=== PATIENT | female | born 1940 | race Caucasian/White ===

== ENCOUNTER 2018-08-10 08:39 | Day surgery (SDC) | payer OTHER ==
[2018-08-09 11:26] LABS: Absolute Lymphocytes (CBC) 1.1 K/uL (0.7-4.9); Absolute Monocytes 0.8 K/uL (0.1-1.3); Absolute Neutrophil 6.5 K/uL (1.8-8.0); Basophils % 1.4 % (0-1.3); Eosinophils % 1.4 % (0-4.4); Lymphocytes % 12.9 % (15.3-44.8); MPV 8.3 fL (7.6-11.3); RBC Red Blood Cell Count 3.76 M/uL (3.86-4.86)
--- NOTE | 2018-08-09 11:35 | RAD REPORT ---
EXAM DESCRIPTION: RAD - Chest Pa And Lat (2 Views) - 08/09/2018 11:28 am CLINICAL HISTORY: left and right heart cath Chest pain. COMPARISON: Chest Pa And Lat (2 Views) dated 10/20/2017; Chest Single View dated 04/05/2016; CHEST SING LE VIEW dated 09/25/2014; CHEST SINGLE VIEW dated 09/24/2014 FINDINGS: Mild interstitial pulmonary edema is present. The heart is normal in size. Sternotomy wire s present. IMPRESSION: Mild CHF.
[2018-08-09 11:40] LABS: Potassium 4.5 mmol/L (3.5-5.1)
[2018-08-10] MEDS ORDERED: NA CHLORIDE 0.9% 0 ML ONE ×2 (09:19→10:49)
[2018-08-10] MEDS ORDERED: NA CHLORIDE 0.9% 500 ML ONE (09:31)
[2018-08-10 10:09] VITALS: TEMP 97.6
[2018-08-10] MEDS ORDERED: LIDOCAINE 1% 20 ML MDV ONE (10:48)
[2018-08-10] MEDS ORDERED: HEPA 1000U/500MLS 2,000 UNIT/1,000 ML BAG IV ONE (10:48)
[2018-08-10] MEDS ORDERED: FENTANYL CITR 100 MCG/2 ML ONE (10:49)
[2018-08-10] MEDS ORDERED: MIDAZOLAM HCL 2 MG/2 ML INJ ONE (10:49)
[2018-08-10] MEDS ORDERED: NA CHLORIDE 0.9% 100 ML IV ONE (10:49)
[2018-08-10] MEDS ORDERED: ATROPINE SULF 1 MG/10 ML SYR IV ONE (10:49)
[2018-08-10] MEDS ORDERED: ACETYLCYST 6,000 MG/30 ML VIAL PO ONE (11:04)
[2018-08-10] MEDS ORDERED: HYDRALAZINE HCL 20 MG/ML VIAL ONE (11:36)
[2018-08-10] MEDS ORDERED: METOPROLOL TARTRATE 5 MG/5 ML INJ IV ONE (11:50)
[2018-08-10] MEDS ORDERED: ACETYLCYST 20% 4 ML VIAL IH ONE (12:06)
[2018-08-10 13:54] VITALS: BP 151/79; O2SAT 96
--- NOTE | 2018-08-11 11:42 | OP ---
Date of Procedure: 08/10/2018 Surgeon: Aryan Feliciano MD Attending Physician: Dr. Canas. Procedure: Right and left heart catheterization with coronary angiography. Procedure Findings: Severe aortic stenosis is suspected. We could not cross the valve and actually measure a gradient using a wire and catheter. She has normal coronary arteries. She has moderate pu lmonary hypertension with PA and RV systolic pressures of 54, pulmonary capillary wedge pressure of 2 3, cardiac output 4.66. Thermal dilution method was used. The findings all indicate severe aortic s tenosis, which is also the conclusion of an echocardiogram. We have been done serially since her aor tic valve surgery done around 2010. Procedure In Detail: The patient was brought to the cardiac dairy laboratory technician in a fasting state, sedated wit h Versed and fentanyl. She had been prepared and draped in the usual sterile fashion. Before coming to the hospital, she had given us informed consent. Lidocaine 1% was used to anesthetize the tissue s around the right femoral artery and the right femoral vein, common femoral vein. Both were entered with needles, cannulated with short J-tip wires. A 4-Danish sheath was placed into the right common femoral artery. A 7-1/2-Danish sheath was placed into the right femoral vein. We used the right fe moral vein to place a [place]-Cedric catheter into the right heart and into the pulmonary artery and into a wedge position. We measured thermodilution cardiac outputs, pressures on a pullback, recorded the values. We then proceeded to the arterial side. We used a JL4 to angiogram left coronary artery, 3D RC to angiogram right coronary artery. We attempted to cross with a straight [place] wire, was unabl e to cross and felt it was more likely to cause difficulty if we attempted a lot of interventions and actually gave us useful information, so we abandoned it after 5 minutes and the conclusion is that s he has severe aortic stenosis, normal coronary arteries, normal ejection fraction, and part of this c onclusion are based on echocardiographic results. She will be referred to Dr. Shelton, who placed he r on initial prosthetic aortic valve in 2010 to see if she is a candidate for a typical aortic valve replacement or a TAVR with an old AVR. SHARRON/ALFONZOL Voice ID: [id number] Report ID: [id number]
== END 2018-08-10 13:56 | disposition home or self-care (01) ==
LOC: CCL 08:39
PROVIDERS: ATTEND Internal Medicine
DX: I35.0 Nonrheumatic aortic (valve) stenosis (principal); I27.20 Pulmonary hypertension, unspecified; I10 Essential (primary) hypertension; Z95.2 Presence of prosthetic heart valve; E11.9 Type 2 diabetes mellitus without complications; J45.909 Unspecified asthma, uncomplicated; Z88.8 Allergy status to other drugs, medicaments and biological substances; Z82.49 Family history of ischemic heart disease and other diseases of the circulatory system
CPT/HCPCS: 85025; 80048; 36415; 85610; 82962 ×2; 85730; 71046; 93456; C1893; C1760; J0360; J2250; J3010; J0583

== ENCOUNTER 2018-11-29 23:38 | Emergency (ER) | payer OTHER ==
--- OUTSIDE RECORDS SUMMARY | 2018-11-29 23:42 | XMS REPORT | Clinical Summary ---
:1940 Author Organization [facility] Address [address] [place] [address] Care Team Providers Name Role Phone Asked, No Pcp Primary Care Provider Unavailable Allergies Active Allergy Reactions Severity Noted Date Comments Losartan Swelling 10/18/2018 Medications Medication Sig Dispensed Refills Start Date End Date Status metFORMIN (GLUCOPHAGE) 1,000 mg 0 09/02/2018 Active tablet lisinopril (PRINIVIL,ZESTRIL) 20 mg 0 10/11/2018 Active tablet metoprolol tartrate (LOPRESSOR) 50 0 09/02/2018 Active mg tablet atorvastatin (LIPITOR) 40 MG tablet 0 09/02/2018 Active Active Problems Problem Noted Date S/P aortic valve replacement with bioprosthetic valve 10/18/2018 Nonrheumatic aortic valve stenosis 10/18/2018 Encounters Date Type Specialty Care Team Description 11/11/2018 Orders Only Cardiovascular Yeni Valero RN S/P aortic valve replacement with bioprosthetic valve (Primary Dx) 10/18/2018 Office Visit Cardiovascular Pop Shelton S/P aortic valve replacement with bioprosthetic valve (Primary Dx); MD Ulysses Nonrheumatic aortic valve stenosis 10/18/2018 Hospital Encounter Pulmonology Pop Shelton Pre-operative respiratory examination; MD Ulysses Nonrheumatic aortic valve stenosis 10/18/2018 Orders Only Cardiovascular Yeni Valero RN Nonrheumatic aortic valve stenosis (Primary Dx) 08/15/2018 Orders Only Cardiovascular Lena Mcclendon RN Nonrheumatic aortic valve stenosis (Primary Dx) 08/15/2018 Orders Only Lena Franco RN Nonrheumatic aortic valve stenosis (Primary Dx); Pre-operative respiratory examination; Pre-operative cardiovascular examination after 11/28/2017 Social History Tobacco Use Types Packs/Day Years Used Date Current Every Day Smoker Cigarettes Smokeless Tobacco: Never Used Sex Assigned at Date Recorded Not on file Job Start Date Occupation Industry Not on file Not on file Not on file Travel History Travel Start Travel End No recent travel history available. Last Filed Vital Signs Vital Sign Reading Time Taken Comments Blood Pressure 160/73 10/18/2018 3:16 PM CDT Pulse 81 10/18/2018 3:16 PM CDT Temperature 36.9 C (98.5 F) 10/18/2018 3:16 PM CDT Respiratory Rate - - Oxygen Saturation - - Inhaled Oxygen Concentration - - Weight 89.8 kg (198 lb) 10/18/2018 3:16 PM CDT Height 170.2 cm (5' 7") 10/18/2018 3:16 PM CDT Body Mass Index 31.01 10/18/2018 3:16 PM CDT Plan of Treatment Date Type Specialty Care Team Description 12/20/2018 Appointment Procedural Cardiology Pop Shelton MD [address] [facility] [address] [place], [place] [id number] 12/21/2018 Hospital Encounter Cardiothoracic Cat, S/P aortic valve Surgery Pop replacement with MD Ulysses bioprosthetic valve [address] [facility] [address] [place], [place] [id number] 12/21/2018 Surgery Cardiothoracic Cat, TRANSCATHETER AORTIC Surgery Pop VALVE REPLACEMENT, MD Ulysses VALVE IN VALVE [address] [facility] [address] [place], [place] [id number] Health Maintenance Due Date Last Done Comments SHINGLES VACCINES (#1) 1988 65+ PNEUMOCOCCAL VACCINE (1 of 2 - PCV13) 09/30/2003 INFLUENZA VACCINE 10/13/2018 Procedures Procedure Name Priority Date/Time Associated Diagnosis Comments ECHOCARDIOGRAM 2D Routine 10/18/2018 1:09 Nonrheumatic aortic Results for this COMPLETE W MMODE PM CDT valve stenosis procedure are in SPECTRAL COLOR DOPPLER the results (62331) section. SPIROMETRY, DIFFUSION, Routine 10/18/2018 12:41 Pre-operative Results for this LUNG VOLUMES PM CDT respiratory procedure are in examination the results Nonrheumatic aortic section. valve stenosis after 11/28/2017 Results Echocardiogram complete w contrast and 3D if needed (10/18/2018 1:09 PM CDT) Specimen Narrative Performed At [facility] Echocardiography Report Pat.Name:JOLLY UPTON.ID:[id number] .Date: 10/18/2018Refer.MD:POP PALACIOS MD Exam Time: 11:25:00 AM Study Type:Routine Echo Height:67inWeight: 198lb BSA: 2.02 m2 DOBAge:1940,78Y Sex: FEMALEBP:160/73 HR:82 bpm Sonogrphr: NELY Farley FASE Pat. Stat.:OutpatientRoom:Ian Avendaño Study Status:Revised Echo Event ID:[id number] Order ID:[id number] Reason for Study:Nonrheumatic aortic valve stenosis History / Clinical:Syncope, Valvular Heart Disease; Aortic Stenosis, COPD, Diabetes, Dizziness, Hyperlipidemia, Hypertension, Shortness of Breath Procedures:2D Echo, Colorflow Doppler Race:White SUMMARY: Small LV with hyperdynamic function. Normal RV size and function. Bioprosthetic aortic valve. No paravalvular aortic regurgitation. Mean gradient across the valve is 33 mm Hg. Normal acceleration time and DVI suggest lack of prosthetic valve obstruction. Aortic valve high velocity and pressure gradient is secondary to high flow state. Severe MAC. Mild to moderate thickening of mitral leaflets. Severe mitral stenosis. Mild mitral regurgitation. Pulmonary hypertension.Estimated PA systolic pressure is at least 64 mmHg, assuming a mean RAP of 5 mmHg. FINDINGS: LV: LV size is normal. Concentric left ventricular remodeling. LVEF is hyperdynamic. Overall wall motion is hyperdynamic. Septalmotion is paradoxical. Estimated EF is >70%. RV: RV size is normal. RV systolic function is normal. LA: LA volume is severely enlarged. RA: RA size is normal. AO: Aortic root diameter is normal. RADHA: No pericardial effusion. AV: Bioprosthetic aortic valve. No paravalvular aortic regurgitation.Mean gradient across the valve is 33 mm Hg. Normalacceleration timesuggests lack of prosthetic valve obstruction.Surgical Prosthetic AV Doppler velocity index is0.5 (normal>0.25). Aortic valve high velocity and pressuregradient is secondary to high flow state. MV: Mild to moderate thickening of mitral leaflets. Severe mitralannular calcification. Mild mitral regurgitation. Severemitral stenosis. Estimated mean mitral valve ybrwnbpr67 mmHg at a heart rate of 77 b/min, with a valve areaof 1.4 cm2. PV: No structural PV abnormalities noted. TV: No structural TV abnormalities noted. Mild tricuspid regurgitation Ovalle: Hepatic vein pressure is normal, RA pressure < 5mmHg. Other:Estimated PA systolic pressure is at least 64 mmHg, assuming amean RAP of 5 mmHg. MEASUREMENTS: 2D Parasternal Long Malin LVIDd4 cmIndex2 cm/m LA Ds4.4 cm LVIDs2.7 cmAo An1.2 cm LV%fs 31.9 % LV Fxmx424.6 g(87-129) IVSd 1.3 cmRWT0.6 LVPWd1.3 cmLVOT 1.9 cm LA Sng Plane LA Area 42.2 cm2(8.8-23.4) LA Vol 189.4 ml Index93.7 ml/m LA LngAx 7.9 cm RA Sng Plane RA Area 13.2 cm2(8.3-19.5) RA Vol31.8 ml Index15.8 ml/m RA LngAx 4.8 cm Ascending Aorta Asce Dim 3.2 cm DOPPLER AV For Flow/CHANTAL AV pkVel 285.5 cm/s (100-170) AV AC/ET 0.3 AV mnVel 190.2 cm/Teresa TVI53.1 cm AV pkPG 32.6 mmHgAVpkAcRt 81292.4 cm/s2 AV Mean G 17.7 mmHgAV OdGz2383.5 cm/s2 AV AC 83 msec (83-118) AV Area1.5 cm2(3-5) AV ET279 msec LVOT For Flow LVOT Area2.8 cm2 LVOT SV 81.6 ml SOPQtgHbm667.6 cm/sHR77.4 bpm LVOTpkPG 5.8 mmHgLVOT CO6.3 l/min LVOTmnPG 4.1 mmHgLVOT CI3.1 l/m/m2 LVOT TVI28.8 cm MV For Flow/Valve Assess MV pkVel 244 cm/sMV Dec T 529 msec MV pkPG 23.8 mmHgMV TVI77.3 cm MV Mean G 14.3 mmHgMV Area P1/2t1.4 cm2(4-6) TV Pressure Gradient TV PkVel 383.2 cm/sTV PG 58.7 mmHg Signed 10/19/2018 11:00:46 AM Laura Mclean MD Revised Procedure Note Interface, Radiology Results In - 10/19/2018 11:01 AM CDT [facility] Echocardiography Report Pat.Name: JOLLY UPTON.ID: [id number] .Date: 10/18/2018 Refer.MD: POP PALACIOS MD Exam Time: 11:25:00 AM Study Type:Routine Echo Height: 67in Weight: 198lb BSA: 2.02 m2 Age: 7 1940,78Y Sex: FEMALE BP: 160/73 HR: 82 bpm Sonogrphr: NELY Farley FASE Pat. Stat.:Outpatient Room: [place] [address] Study Status:Revised Echo Event ID:[id number] Order ID: [id number] Reason for Study:Nonrheumatic aortic valve stenosis History / Clinical:Syncope, Valvular Heart Disease; Aortic Stenosis, COPD, Diabetes, Dizziness, Hyperlipidemia, Hypertension, Shortness of Breath Procedures:2D Echo, Colorflow Doppler Race: White SUMMARY: Small LV with hyperdynamic function. Normal RV size and function. Bioprosthetic aortic valve. No paravalvular aortic regurgitation. Mean gradient across the valve is 33 mm Hg. Normal acceleration time and DVI suggest lack of prosthetic valve obstruction. Aortic valve high velocity and pressure gradient is secondary to high flow state. Severe MAC. Mild to moderate thickening of mitral leaflets. Severe mitral stenosis. Mild mitral regurgitation. Pulmonary hypertension. Estimated PA systolic pressure is at least 64 mmHg, assuming a mean RAP of 5 mmHg. FINDINGS: LV: LV size is normal. Concentric left ventricular remodeling. LV EF is hyperdynamic. Overall wall motion is hyperdynamic. Septal motion is paradoxical. Estimated EF is >70%. RV: RV size is normal. RV systolic function is normal. LA: LA volume is severely enlarged. RA: RA size is normal. AO: Aortic root diameter is normal. RADHA: No pericardial effusion. AV: Bioprosthetic aortic valve. No paravalvular aortic regurgitation. Mean gradient across the valve is 33 mm Hg. Normal acceleration time suggests lack of prosthetic valve obstruction. Surgical Prosthetic AV Doppler velocity index is 0.5 (normal>0.25). Aortic valve high velocity and pressure gradient is secondary to high flow state. MV: Mild to moderate thickening of mitral leaflets. Severe mitral annular calcification. Mild mitral regurgitation. Severe mitral stenosis. Estimated mean mitral valve gradient 14 mmHg at a heart rate of 77 b/min, with a valve area of 1.4 cm2. PV: No structural PV abnormalities noted. TV: No structural TV abnormalities noted. Mild tricuspid regurgitation Ovalle: Hepatic vein pressure is normal, RA pressure < 5mmHg. Other: Estimated PA systolic pressure is at least 64 mmHg, assuming a mean RAP of 5 mmHg. MEASUREMENTS: 2D Parasternal Long Malin LVIDd 4 cm Index 2 cm/m LA Ds 4.4 cm LVIDs 2.7 cm Ao An 1.2 cm LV%fs 31.9 % LV Mass 179.6 g (87-129) IVSd 1.3 cm RWT 0.6 LVPWd 1.3 cm LVOT 1.9 cm LA Sng Plane LA Area 42.2 cm2 (8.8-23.4) LA Vol 189.4 ml Index 93.7 ml/m LA LngAx 7.9 cm RA Sng Plane RA Area 13.2 cm2 (8.3-19.5) RA Vol 31.8 ml Index 15.8 ml/m RA LngAx 4.8 cm Ascending Aorta Asce Dim 3.2 cm DOPPLER AV For Flow/CHANTAL AV pkVel 285.5 cm/s (100-170) AV AC/ET 0.3 AV mnVel 190.2 cm/s AV TVI 53.1 cm AV pkPG 32.6 mmHg AVpkAcRt 56537.4 cm/s2 AV Mean G 17.7 mmHg AV DeRt 1022.5 cm/s2 AV AC 83 msec (83-118) AV Area 1.5 cm2 (3-5) AV ET 279 msec LVOT For Flow LVOT Area 2.8 cm2 LVOT SV 81.6 ml LVOTpkVel 120.6 cm/s HR 77.4 bpm LVOTpkPG 5.8 mmHg LVOT CO 6.3 l/min LVOTmnPG 4.1 mmHg LVOT CI 3.1 l/m/m2 LVOT TVI 28.8 cm MV For Flow/Valve Assess MV pkVel 244 cm/s MV Dec T 529 msec MV pkPG 23.8 mmHg MV TVI 77.3 cm MV Mean G 14.3 mmHg MV Area P1/2t 1.4 cm2 (4-6) TV Pressure Gradient TV PkVel 383.2 cm/s TV PG 58.7 mmHg Signed 10/19/2018 11:00:46 AM Laura Mclean MD Revised Performing Organization Address City/State/Zipcode Phone Number [facility] [address] [place] [address] Spirometry, diffusion, lung volumes (10/18/2018 12:41 PM CDT) [facility] FEV1 Pre 1.75 1.59 - 2.87 L [facility] FEV1/FVC % Pre 82.42 64.02 - 83.60 % [facility] FVC Pre 2.13 2.23 - 3.74 L [facility] PEF Pre 5.29 3.39 - 7.14 L/s [facility] FEF 25-75% Pre 2.11 0.23 - 2.94 L/s [facility] DLCO Pre 14.19 14.11 - 27.11 [facility] ml/(min*mmHg) DL/VA Pre 3.95 2.68 - 5.31 [facility] ml/(min*mmHg*L) VA SB Pre 3.60 4.45 - 6.66 L [facility] DLCOc Pre 14.19 14.11 - 27.11 [facility] ml/(min*mmHg) KCOc SB Pre 3.95 2.68 - 5.31 [facility] ml/(min*mmHg*L) Hb Pre 13.40 g(Hb)/dL [facility] R0.5IN Pre 2.87 3.06 - 3.06 [facility] cmH2O*s/L FRCpl Pre 2.10 2.07 - 3.71 L [facility] RV Pre 1.26 1.78 - 2.94 L [facility] TLC Pre 3.79 4.45 - 6.43 L [facility] RV % TLC Pre 33.25 36.57 - 55.75 % [facility] VC Pre 2.53 2.23 - 3.74 L [facility] ERV Pre 0.84 0.53 - 0.53 L [facility] IC Pre 1.69 2.20 - 2.20 L [facility] sR0.5IN Pre 7.72 cmH2O*s [facility] Raw Pre 4.18 3.06 - 3.06 [facility] cmH2O*s/L sGaw Predicted 0.09 0.10 - 0.10 [facility] 1/(cmH2O*s) FEV1 Predicted 2.23 [facility] FEV1 LLN 1.59 [facility] FEV1 % Pre of Predicted 78.5 % [facility] FVC Predicted 2.99 [facility] FVC LLN 2.23 [facility] FVC % Pre of Predicted 71.2 % [facility] FEV1/FVC % Predicted 74 [facility] FEV1/FVC % LLN 64 [facility] FEV1/FVC % Pre of 111.7 % [facility] Predicted FEF 25-75% Predicted 1.59 [facility] FEF 25-75% LLN 0.23 [facility] FEF 25-75% % Pre of 133.0 % [facility] Predicted PEF Predicted 5.26 [facility] PEF LLN 3.39 [facility] PEF % Pre of Predicted 100.5 % [facility] VC Predicted 2.99 [facility] VC LLN 2.23 [facility] VC % Pre of Predicted 84.6 % [facility] ERV Predicted 0.53 [facility] ERV LLN 0.53 [facility] ERV % Pre of Predicted 158.3 % [facility] FRCpl % Predicted 2.89 [facility] FRCpl % LLN 2.07 [facility] FRCpl % Pre of Predicted 72.6 % [facility] IC Predicted 2.20 [facility] IC LLN 2.20 [facility] IC % Pre of Predicted 76.6 % [facility] RV Predicted 2.36 [facility] RV LLN 1.78 [facility] RV % Pre of Predicted 53.3 % [facility] RV % TLC Predicted 46 [facility] RV % TLC LLN 37 [facility] RV % TLC % Pre of 72.0 % [facility] Predicted TLC Predicted 5.44 [facility] TLC LLN 4.45 [facility] TLC % Pre of Predicted 69.6 % [facility] Raw Predicted 3.06 [facility] Raw LLN 3.06 [facility] Raw % Pre of Predicted 136.6 % [facility] R0.5IN Predicted 3.06 [facility] R0.5IN LLN 3.06 [facility] R0.5IN % Pre of 93.8 % [facility] Predicted sGaw Predicted 0.10 [facility] sGaw LLN 0.10 [facility] sGaw % Pre of Predicted 87.2 % [facility] DLCO Predicted 20.61 [facility] DLCO LLN 14.11 [facility] DLCO % Pre of Predicted 68.8 % [facility] DLCOc Predicted 20.61 [facility] DLCOc LLN 14.11 [facility] DLCOc % Pre of Predicted 68.8 % [facility] DL/VA Predicted 3.99 [facility] DL/VA LLN 2.68 [facility] DL/VA % Pre of Predicted 98.8 % [facility] KCOc SB Predicted 3.99 [facility] KCOc SB LLN 2.68 [facility] KCOc SB % Pre of 98.8 % [facility] Predicted VA SB Predicted 5.55 [facility] VA SB LLN 4.45 [facility] VA SB % Pre of Predicted 64.7 % [facility] Specimen Narrative Performed At Performing Organization Address City/State/Zipcode Phone Number [facility] [address] [place] [address] after 11/28/2017 Insurance Payer Benefit Plan / Subscriber ID Effective Dates Phone Address Type Group MEDICARE MEDICARE PART A xxxxxxxxxxx 2003-Present [place], [place] Medicare AND B (Home) [place] [address] Advance Directives For more information, please contact: [phone] Type Date Recorded 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
[2018-11-30 00:20] LABS: Absolute Lymphocytes (CBC) 1.1 K/uL (0.7-4.9); Basophils % 1.4 % (0-1.3); Hematocrit 34.6 % (36.0-45.0); Lymphocytes % 20.7 % (15.3-44.8)
[2018-11-30 00:23] LABS: Protime INR 1.01
[2018-11-30 00:40] LABS: ALT/SGPT 13 U/L (12-78); AST/SGOT 20 U/L (15-37); Albumin 3.8 g/dL (3.4-5.0); Alkaline Phosphatase 117 U/L (45-117); BUN Blood Urea Nitrogen 34 mg/dL (7-18); Bicarbonate 24 mmol/L (21-32); Bilirubin Direct 0.1 mg/dL (0-0.2); Bilirubin Total 0.4 mg/dL (0.2-1.0); Glucose Level 143 mg/dL (74-106); Magnesium 2.2 mg/dL (1.8-2.4); NT PRO-BNP 1064 pg/mL (<450); Potassium 4.3 mmol/L (3.5-5.1); Protein, Total 7.3 g/dL (6.4-8.2); Sodium Level 141 mmol/L (136-145); Troponin (Emerg Dept Use Only) < 0.02 ng/mL (0.0-0.045)
--- NOTE | 2018-11-30 03:48 | ER ---
Nurse's Notes [facility] Name: Jolly Thayer Age: 78 yrs Sex: Female : 1940 Arrival Date: 11/29/2018 Time: 23:47 Bed 19 Private MD: Diagnosis: Palpitations Presentation: 11/29 23:49 Presenting complaint: EMS states: they were toned out for report of pt having chest bb pain and felt a "flutter" in her chest which she has not experienced in the past. Transition of care: patient was not received from another setting of care. Onset of symptoms was November 29, 2018. Risk Assessment: Do you want to hurt yourself or someone else? Patient reports no desire to harm self or others. Initial Sepsis Screen: Does the patient meet any 2 criteria? No. Patient's initial sepsis screen is negative. Does the patient have a suspected source of infection? No. Patient's initial sepsis screen is negative. Care prior to arrival: Medication(s) given: ASA, 81 mg, x 4, Nitroglycerin, 0.4 mg SL x 1, IV initiated. 20 GA, in the left antecubital area. 23:49 Method Of Arrival: Ambulatory bb 23:49 Acuity: TROY 2 bb Triage Assessment: 23:59 General: Appears uncomfortable, Behavior is calm, cooperative. Pain: Complains of pain lc1 in left chest Pain does not radiate. Pain currently is 4 out of 10 on a pain scale. Quality of pain is described as aching, Pain began 1 hour ago. Is intermittent. EENT: No signs and/or symptoms were reported regarding the EENT system. Neuro: No deficits noted. Cardiovascular: Rhythm is sinus tachycardia Chest pain is located in left chest wall began 1 hour prior to arrival episodes are intermittent. Respiratory: No deficits noted. GI: No signs and/or symptoms were reported involving the gastrointestinal system. : No signs and/or symptoms were reported regarding the genitourinary system. Derm: No signs and/or symptoms reported regarding the dermatologic system. Musculoskeletal: No signs and/or symptoms reported regarding the musculoskeletal system. Historical: - Allergies: 23:51 valsartan; bb - Home Meds: 23:51 Unable to obtain [Active]; bb - PMHx: 23:51 Asthma; COPD; Hypertension; bb - PSHx: 23:51 heart valve surgery; Hysterectomy; bb - Immunization history:: Adult Immunizations up to date. - Social history:: Smoking status: Patient/guardian denies using tobacco. - Ebola Screening: : No symptoms or risks identified at this time. Screenin:54 Abuse screen: Denies threats or abuse. Nutritional screening: No deficits noted. lc1 Tuberculosis screening: No symptoms or risk factors identified. Fall Risk None identified. Assessment: 23:54 General: Appears uncomfortable, obese, Behavior is calm, cooperative. Pain: Complains lc1 of pain in left chest Pain does not radiate. Pain currently is 4 out of 10 on a pain scale. Quality of pain is described as aching, Pain began 1 hour ago. Is intermittent. Neuro: No deficits noted. Cardiovascular: Reports chest pain, palpitations, since about an hour ago Denies lightheadedness, nausea, syncope, vomiting, Capillary refill < 3 seconds is brisk Clubbing of nail beds is absent JVD is absent Patient's skin is warm and dry. Rhythm is sinus tachycardia Chest pain is described as mild, quality is aching Parent/caregiver reports patient has had since history of valve replacement. Respiratory: Airway is patent Respiratory effort is even, unlabored, Respiratory pattern is regular, symmetrical. GI: No signs and/or symptoms were reported involving the gastrointestinal system. : No signs and/or symptoms were reported regarding the genitourinary system. EENT: No signs and/or symptoms were reported regarding the EENT system. Derm: No deficits noted. Musculoskeletal: No signs and/or symptoms reported regarding the musculoskeletal system. 11/30 00:14 Reassessment: patient stated she feels like the air is thick and its hard to breath. 02 lc1 placed per NC at 2 liters, sat 100%, will continue to monitor . 01:11 Reassessment: No changes from previously documented assessment. Patient and/or family lc1 updated on plan of care and expected duration. Pain level reassessed. Patient is alert, oriented x 3, equal unlabored respirations, skin warm/dry/pink. Patient states feeling better. 01:32 Pain: Complains of pain in chest Pain currently is 4 out of 10 on a pain scale. Quality jd3 of pain is described as aching. Neuro: Level of Consciousness is awake, alert, obeys commands, Oriented to person, place, time, situation. Cardiovascular: Capillary refill < 3 seconds Patient's skin is warm and dry. Rhythm is sinus rhythm. Respiratory: Airway is patent Respiratory effort is even, unlabored, Respiratory pattern is regular, symmetrical, Denies cough, shortness of breath. GI: No signs and/or symptoms were reported involving the gastrointestinal system. : No signs and/or symptoms were reported regarding the genitourinary system. EENT: No signs and/or symptoms were reported regarding the EENT system. Derm: Skin is intact, Skin is dry, Skin is normal, Skin temperature is warm. Musculoskeletal: Circulation, motion, and sensation intact. Range of motion: intact in all extremities. 02:44 Reassessment: Patient appears in no apparent distress at this time. Patient and/or jd3 family updated on plan of care and expected duration. Pain level reassessed. Patient is alert, oriented x 3, equal unlabored respirations, skin warm/dry/pink. awaiting disposition. 04:14 Reassessment: Patient appears in no apparent distress at this time. Patient and/or jd3 family updated on plan of care and expected duration. Pain level reassessed. Patient is alert, oriented x 3, equal unlabored respirations, skin warm/dry/pink. reported understanding of discharge instructions. assisted pt to front of ER with wheelchair with family. Patient states feeling better. Vital Signs: 11/29 23:51 BP 124 / 92; Pulse 119; Resp 24 S; Temp 98.2(O); Pulse Ox 96% on R/A; Weight 86.18 kg bb (R); Height 5 ft. 7 in. (170.18 cm); Pain 06/22; 11/30 00:15 BP 128 / 72; Pulse 97; Resp 20; Pulse Ox 100% on 2 lpm NC; lc1 01:00 BP 122 / 83; Pulse 91; Resp 22; Pulse Ox 97% on 2 lpm NC; lc1 01:34 BP 158 / 99; Pulse 87; Resp 21 S; Pulse Ox 98% on R/A; Pain 4/10; jd3 02:44 BP 138 / 89; Pulse 83; Resp 23 S; Pulse Ox 99% on R/A; jd3 04:15 BP 129 / 85; Pulse 82; Resp 21 S; Pulse Ox 97% on R/A; Pain 0/10; jd3 11/29 23:51 Body Mass Index 29.76 (86.18 kg, 170.18 cm) bb ED Course: 11/29 23:47 Patient arrived in ED. ds1 23:50 Triage completed. bb 23:50 Tomer Mccrary MD is Attending Physician. 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 EKG completed in triage. Results shown to MD. Family accompanied patient. 23:53 Kiera Astorga is Primary Nurse. lc1 23:54 Awaiting ED provider evaluation. lc1 23:54 Patient has correct armband on for positive identification. Placed in gown. Bed in low lc1 position. Side rails up X 1. press catcher on. Pulse ox on. NIBP on. Door closed. Noise minimized. Warm blanket given. 11/30 00:14 Maintain EMS IV. Dressing intact. Good blood return noted. Site clean \\T\\ dry. Gauge \\T\\ lc 1 site: 20G LAC . 00:17 X-ray completed. Portable x-ray completed in exam room. Patient tolerated procedure kw well. 00:23 XRAY Chest (1 view) In Process Unspecified. EDMS 00:26 Oxygen administration via nasal cannula \\T\\ 2L/min Response to oxygen therapy: symptoms lc1 improved. 00:28 Awaiting lab results, Awaiting radiology results. lc1 01:31 Primary Nurse role handed off by Kiera Astorga jd3 01:31 Fransisco Hoang RN is Primary Nurse. jd3 02:16 Troponin (emerg Dept Use Only) Sent. jd3 04:13 No provider procedures requiring assistance completed. IV discontinued, intact, jd3 bleeding controlled, No redness/swelling at site. Pressure dressing applied. Administered Medications: No medications were administered Outcome: 03:47 Discharge ordered by . gs 04:14 Discharged to home via wheelchair, with family. jd3 04:14 Condition: stable 04:14 Discharge instructions given to patient, family, Instructed on discharge instructions, follow up and referral plans. Demonstrated understanding of instructions, follow-up care. 04:16 Patient left the ED. jd3 Signatures: Dispatcher [employer] EDAZ Amada Riojas ds1 Wendy Estrada, RENA RN Kiera Sumner lc1 Morenita Coronel Gregory, MD MD gs Fransisco Hoang RN RN jd3
--- NOTE | 2018-11-30 03:48 | EDPHYS ---
Physician Documentation [facility] Name: Jolly Thayer Age: 78 yrs Sex: Female : 1940 Arrival Date: 11/29/2018 Time: 23:47 Bed 19 Private MD: ED Physician Tomer Mccrary HPI: 11/30 03:10 This 78 yrs old Female presents to ER via Ambulatory with complaints of gs palpitations. 03:10 The patient presents with a history of heart racing. Context: The symptoms occur at gs rest. Onset: The symptoms/episode began/occurred acutely, just prior to arrival. Duration: The patient or guardian reports a single episode, that is now resolved. Modifying factors: The symptoms are aggravated by nothing. The symptoms are alleviated by nothing. Associated signs and symptoms: Pertinent positives: chest pain, SOB. Severity of symptoms: At their worst the symptoms were moderate in the emergency department the symptoms have resolved. The patient has experienced similar episodes in the past, a few times. Historical: - Allergies: 11/29 23:51 valsartan; bb - Home Meds: 23:51 Unable to obtain [Active]; bb - PMHx: 23:51 Asthma; COPD; Hypertension; bb - PSHx: 23:51 heart valve surgery; Hysterectomy; bb - Immunization history:: Adult Immunizations up to date. - Social history:: Smoking status: Patient/guardian denies using tobacco. - Ebola Screening: : No symptoms or risks identified at this time. ROS: 11/30 03:10 All other systems are negative. gs Exam: 03:10 Head/Face: Normocephalic, atraumatic. Eyes: Pupils equal round and reactive to light, gs extra-ocular motions intact. Lids and lashes normal. Conjunctiva and sclera are non-icteric and not injected. Cornea within normal limits. Periorbital areas with no swelling, redness, or edema. ENT: Nares patent. No nasal discharge, no septal abnormalities noted. Tympanic membranes are normal and external auditory canals are clear. Oropharynx with no redness, swelling, or masses, exudates, or evidence of obstruction, uvula midline. Mucous membranes moist. Neck: Trachea midline, no thyromegaly or masses palpated, and no cervical lymphadenopathy. Supple, full range of motion without nuchal rigidity, or vertebral point tenderness. No Meningismus. Chest/axilla: Normal chest wall appearance and motion. Nontender with no deformity. No lesions are appreciated. Cardiovascular: Regular rate and rhythm with a normal S1 and S2. No gallops, murmurs, or rubs. Normal PMI, no JVD. No pulse deficits. Respiratory: Lungs have equal breath sounds bilaterally, clear to auscultation and percussion. No rales, rhonchi or wheezes noted. No increased work of breathing, no retractions or nasal flaring. Abdomen/GI: Soft, non-tender, with normal bowel sounds. No distension or tympany. No guarding or rebound. No evidence of tenderness throughout. Back: No spinal tenderness. No costovertebral tenderness. Full range of motion. Skin: Warm, dry with normal turgor. Normal color with no rashes, no lesions, and no evidence of cellulitis. MS/ Extremity: Pulses equal, no cyanosis. Neurovascular intact. Full, normal range of motion. Neuro: Awake and alert, GCS 15, oriented to person, place, time, and situation. Cranial nerves II-XII grossly intact. Motor strength 5/5 in all extremities. Sensory grossly intact. Cerebellar exam normal. Normal gait. 03:10 Constitutional: The patient appears alert, awake. 03:10 Cardiovascular: Heart sounds: murmur, systolic, grade 2 over 6. 03:47 ECG was reviewed by the Attending Physician. Vital Signs: 11/29 23:51 BP 124 / 92; Pulse 119; Resp 24 S; Temp 98.2(O); Pulse Ox 96% on R/A; Weight 86.18 kg bb (R); Height 5 ft. 7 in. (170.18 cm); Pain 06/22; 11/30 00:15 BP 128 / 72; Pulse 97; Resp 20; Pulse Ox 100% on 2 lpm NC; lc1 01:00 BP 122 / 83; Pulse 91; Resp 22; Pulse Ox 97% on 2 lpm NC; lc1 01:34 BP 158 / 99; Pulse 87; Resp 21 S; Pulse Ox 98% on R/A; Pain 06/22; jd3 02:44 BP 138 / 89; Pulse 83; Resp 23 S; Pulse Ox 99% on R/A; jd3 04:15 BP 129 / 85; Pulse 82; Resp 21 S; Pulse Ox 97% on R/A; Pain 0/10; jd3 11/29 23:51 Body Mass Index 29.76 (86.18 kg, 170.18 cm) bb MDM: 11/29 23:56 Patient medically screened. 11/30 03:10 Differential diagnosis: arrythmia, mi,chf. Data reviewed: vital signs, nurses notes, lab test result(s), EKG, radiologic studies. Response to treatment: the patient's symptoms have markedly improved after treatment, the patient's symptoms have resolved after treatment, the patient's condition has returned to base line. 11/29 23:59 Order name: Basic Metabolic Panel; Complete Time: 01: 11/29 23:59 Order name: CBC with Diff; Complete Time: : 11/29 23:59 Order name: LFT's; Complete Time: 01: 11/29 23:59 Order name: Magnesium; Complete Time: 01: 11/29 23:59 Order name: NT PRO-BNP; Complete Time: 01: 11/29 23:59 Order name: PT-INR; Complete Time: 01: 11/29 23:59 Order name: Troponin (emerg Dept Use Only) 11/29 23:59 Order name: XRAY Chest (1 view) 11/29 23:59 Order name: EKG; Complete Time: 00:02 11/29 23:59 Order name: Cardiac monitoring; Complete Time: 00:05 11/29 23:59 Order name: EKG - Nurse/Tech; Complete Time: 00:04 11/29 23:59 Order name: IV Saline Lock; Complete Time: 00:11 11/29 23:59 Order name: Labs collected and sent; Complete Time: 00:12 11/30 02:04 Order name: Troponin (emerg Dept Use Only); Complete Time: 03:43 11/29 23:59 Order name: O2 Per Protocol; Complete Time: 00:05 11/29 23:59 Order name: O2 Sat Monitoring; Complete Time: 00:05 EC:47 Rate is 126 beats/min. Rhythm is regular, Sinus tachycardia. [place] interval is normal. QRS gs interval is normal. Clinical impression: NSR w/ Non-specific ST/T Changes. Interpreted by me. Administered Medications: No medications were administered Disposition: 11/30/18 03:47 Discharged to Home. Impression: Palpitations. - Condition is Stable. - Discharge Instructions: Palpitations. - Medication Reconciliation Form, Thank You Letter, Antibiotic Education, Prescription Opioid Use form. - Follow up: Private Physician; When: 2 - 3 days; Reason: Re-evaluation by your physician. Signatures: Dispatcher [employer] Wendy Trimble RN RN Tomer Ochoa MD MD gs Davies, Jonathon, RN RN jd3 Corrections: (The following items were deleted from the chart) 04:16 03:47 11/30/2018 03:47 Discharged to Home. Impression: Palpitations. Condition is jd3 Stable. Forms are Medication Reconciliation Form, Thank You Letter, Antibiotic Education, Prescription Opioid Use. Follow up: Private Physician; When: 2 - 3 days; Reason: Re-evaluation by your physician. segun
[2018-11-30 04:23] VITALS: TEMP 98.2
[2018-11-30 04:31] VITALS: BP 129/85; O2SAT 97
--- NOTE | 2018-11-30 07:26 | EKG ---
Test Date: 2018-11-29 Test Time: 23:44:56 Recharger: VINNY MEASUREMENT RESULTS: Intervals: Rate: 116 IL: 164 QRSD: 92 QT: 330 QTc: 458 [place]: P: 56 IL: 164 QRS: -11 T: 69 INTERPRETIVE STATEMENTS: Sinus tachycardia Otherwise normal ECG Compared to ECG 04/05/2016 19:04:55 Sinus rhythm no longer present Electronically Signed On 11-30-18 07:25:08 CDT by Amaury Rubalcava
--- NOTE | 2018-11-30 07:50 | RAD REPORT ---
EXAM DESCRIPTION: Jeane Single View11/30/2018 12:18 am CLINICAL HISTORY: Chest pain COMPARISON: July 2018 FINDINGS: The lungs appear clear of acute infiltrate. The heart is mildly enlarged. Postsurgical changes involve the chest. IMPRESSION: No acute abnormalities displayed
== END 2018-11-30 04:16 | disposition home or self-care (01) ==
LOC: ER 23:38
DX: R00.2 Palpitations (principal); I10 Essential (primary) hypertension; Z88.8 Allergy status to other drugs, medicaments and biological substances; Z95.818 Presence of other cardiac implants and grafts
CPT/HCPCS: 36415; 71045; 80048; 80076; 83735; 83880; 84484; 85025; 85610; 93005; 99285

== ENCOUNTER 2021-10-16 00:55 | Observation (INO) | payer OTHER ==
[2021-10-16] MEDS ORDERED: NA CHLORIDE 0.9% 500 ML ONE (01:22)
[2021-10-16 01:44] LABS: Absolute Lymphocytes (CBC) 0.6 K/uL (0.7-4.9); Hematocrit 41.7 % (36.0-45.0); Lymphocytes % 10.4 % (15.3-44.8); MCV 93.9 fL (80-100); MPV 8.3 fL (7.6-11.3); RBC Red Blood Cell Count 4.44 M/uL (3.86-4.86)
[2021-10-16 02:11] LABS: Potassium 3.8 mmol/L (3.5-5.1)
[2021-10-16 02:12] LABS: Troponin High Sensitivity 84.9 pg/mL (<58.9)
--- NOTE | 2021-10-16 02:49 | EDPHYS ---
Physician Documentation [facility] Name: Jolly Thayer Age: 81 yrs Sex: Female : 1940 Arrival Date: 10/16/2021 Time: 01:00 Bed 5 Private MD: ED Physician Adam Eldridge HPI: 10/16 01:06 This 81 yrs old Female presents to ER via EMS with complaints of generalized weakness. rn 01:06 EMS reports multiple 911 calls from family, ranging from weakness to sob, but patient rn ultimately refused transfer. Called back out again for weakness and patient agreed to transfer. Reports having trouble getting out of bed and to bathroom, not eating/drinking normal amounts. Denies focal weakness/numbness. No fall. No chest pain. Reports mild sob, and is on home O2. No fever. No abd pain or vomiting/diarrhea. . Onset: The symptoms/episode began/occurred at an unknown time. Severity of symptoms: At their worst the symptoms were moderate in the emergency department the symptoms are unchanged. It is unknown whether or not the patient has had similar symptoms in the past. The patient has not recently seen a physician. Historical: - Allergies: 01:06 valsartan; vc1 - Home Meds: 01:06 None [Active]; vc1 - PMHx: 01:06 Asthma; COPD; Hypertension; vc1 - PSHx: 01:06 None; vc1 - Immunization history:: Adult Immunizations up to date. - Social history:: Smoking status: Patient denies any tobacco usage or history of. - Family history:: not pertinent. - Hospitalizations: : No recent hospitalization is reported. ROS: 01:06 Constitutional: Negative for fever, chills, and weight loss, Eyes: Negative for injury, rn pain, redness, and discharge, Neck: Negative for injury, pain, and swelling, Cardiovascular: Negative for chest pain, palpitations, and edema, Respiratory: Negative for shortness of breath, cough, wheezing, and pleuritic chest pain, Abdomen/GI: Negative for abdominal pain, nausea, vomiting, diarrhea, and constipation, Back: Negative for injury and pain, : Negative for injury, bleeding, discharge, and swelling, MS/Extremity: Negative for injury and deformity, Skin: Negative for injury, rash, and discoloration, Neuro: Negative for headache, numbness, tingling, and seizure. Exam: 01:06 ECG was reviewed by the Attending Physician. rn 01:06 Constitutional: This is a well developed, well nourished patient who is awake, alert, rn and in no acute distress. Head/Face: Normocephalic, atraumatic. Eyes: Periorbital areas with no swelling, redness, or edema. ENT: dry MM Cardiovascular: Tachycardic, regular Respiratory: No increased work of breathing, no retractions or nasal flaring. Abdomen/GI: soft, non-tender Skin: Warm, dry MS/ Extremity: Pulses equal, no cyanosis. Neurovascular intact. Full, normal range of motion. Equal circumference. Neuro: Awake and alert, GCS 15, oriented to person, place, not time. Cranial nerves II-XII grossly intact. Motor strength 4/5 in all extremities. Sensory grossly intact. Vital Signs: 01:02 BP 105 / 71; Pulse 107; Resp 16; Temp 98.1(O); Pulse Ox 96% on R/A; Weight 48.53 kg; vc1 Height 5 ft. 7 in. (170.18 cm); Pain 0/10; 01:08 Pulse Ox 98% on 2 lpm NC; vc1 02:28 BP 115 / 65; Pulse 89; Resp 16; Pulse Ox 100% on 2 lpm NC; vc1 04:29 BP 108 / 68 RA (man/); tw5 04:29 BP 102 / 64 LA (man/); tw5 11:16 Weight 81.65 kg; ph 11:16 Body Mass Index 28.19 (81.65 kg, 170.18 cm) ph MDM: 01:01 Patient medically screened. rn 02:46 Differential Diagnosis COVID, dehydration, UTI, pneumonia. Data reviewed: vital signs, rn nurses notes, lab test result(s), radiologic studies, plain films, and as a result, I will admit patient. Counseling: I had a detailed discussion with the patient and/or guardian regarding: the historical points, exam findings, and any diagnostic results supporting the discharge/admit diagnosis, lab results, radiology results, the need for further work-up and treatment in the hospital. Response to treatment: the patient's symptoms have mildly improved after treatment, and as a result, I will admit patient. Admission orders: after a detailed discussion of the patient's condition and case, the admit orders are written by me. 10/16 01:02 Order name: CBC with Diff; Complete Time: 03:12 rn 08/ 01:02 Order name: Basic Metabolic Panel; Complete Time: 02:40 rn /04 01:02 Order name: Urine Microscopic Only rn 10/16 01:02 Order name: BNP; Complete Time: 02:40 rn 10/16 01:02 Order name: Troponin High Sensitivity; Complete Time: 02:40 rn 10/16 01:02 Order name: Blood Culture Adult (2) rn 10/16 01:02 Order name: XRAY Chest (1 view) rn 10/16 01:02 Order name: SARS-COV-2 RT PCR (Document "Date of Onset" if Symptomatic); Complete Time: rn 02:40 10/16 01:48 Order name: Manual Differential; Complete Time: 03:12 EDMS 10/16 03:12 Order name: DD; Complete Time: 05:15 la1 10/16 05:16 Order name: Chest For PE Angio CT la1 04 08:38 Order name: Troponin High Sensitivity EDMS 04 11:46 Order name: CT EDMS 10/16 01:02 Order name: IV Start; Complete Time: 02:15 rn 10/16 01:02 Order name: EKG; Complete Time: 01:03 rn 10/16 01:02 Order name: EKG - Nurse/Tech; Complete Time: 01:10 rn 10/16 01:02 Order name: Cardiac monitoring; Complete Time: 02:15 rn 10/16 01:02 Order name: O2 Sat Monitoring; Complete Time: 02:15 rn EC:06 Rate is 104 beats/min. Rhythm is regular. QRS [place] is Normal. [place] interval is normal. rn QRS interval is normal. QT interval is normal. No Q waves. T waves are Normal. No ST changes noted. Clinical impression: Sinus tachycardia. Interpreted by me. Reviewed by me. Administered Medications: 02:10 Drug: NS 0.9% 500 ml Route: IV; Rate: bolus; Site: right antecubital; vc1 02:40 Follow up: IV Status: Completed infusion; IV Intake: 500ml vc1 03:01 Drug: Aspirin Chewable Tablet 324 mg Route: PO; vc1 03:30 Follow up: Response: No adverse reaction vc1 04:20 Drug: NS 0.9% 1000 ml Route: IV; Rate: 1 bolus; Site: right antecubital; vc1 05:26 Follow up: IV Status: Infusion continued upon admission vc1 08:40 Drug: Lovenox (enoxaparin) 1 mg/kg Route: Sub-Q; Site: right lower abdomen; ph 09:00 Follow up: Response: No adverse reaction ph Disposition Summary: 10/16/21 02:48 Hospitalization Ordered Hospitalization Status: Observation rn Provider: Manny Sanchez rn Condition: Stable rn Problem: new rn Symptoms: have improved rn Bed/Room Type: Standard rn Location: Telemetry/MedSurg (observation)(10/16/21 11:03) eb Room Assignment: [facility](10/16/21 11:03) Diagnosis - SARS-associated coronavirus as the cause of diseases classified elsewhere rn - Muscle weakness (generalized) rn - Pulmonary embolism without acute cor pulmonale rn Forms: - Medication Reconciliation Form rn - SBAR form rn Signatures: Dispatcher [employer] EDAdam Liz MD MD rn Attema, Lee, FIELD AGRONOMIST-C FIELD AGRONOMIST-Cla1 Natasha Reddy RN RN Lolis Lr RN RN Coco Davis Vanessa RN RN vc1 Corrections: (The following items were deleted from the chart) 03:32 02:48 Telemetry/MedSurg (observation) rn cg 03:32 02:48 rn cg 11:03 03:32 [facility] ER HOLD cg eb 11:03 03:32 ERHOLD- cg eb
--- NOTE | 2021-10-16 02:49 | ER ---
Nurse's Notes [facility] Name: Jolly Thayer Age: 81 yrs Sex: Female : 1940 Arrival Date: 10/16/2021 Time: 01:00 Bed 5 Private MD: Diagnosis: SARS-associated coronavirus as the cause of diseases classified elsewhere;Muscle weakness (generalized);Pulmonary embolism without acute cor pulmonale Presentation: 10/16 01:02 Chief complaint: EMS states: "We have been called out for her 3 other times in the last vc1 24hours and each time she refuses to go. She is staying in a motel right now and her family has called for her being weak and for possible covid symptoms. This time we were called for increased weakness. When we arrived vitals are stable she was 94% on room air, she does use home oxygen.". Coronavirus screen: Vaccine status: Patient reports being unvaccinated. At this time, the client does not indicate any symptoms associated with coronavirus-19. Ebola Screen: No symptoms or risks identified at this time. Initial Sepsis Screen: Does the patient meet any 2 criteria? HR > 90 bpm. No. Patient's initial sepsis screen is negative. Does the patient have a suspected source of infection? No. Patient's initial sepsis screen is negative. Risk Assessment: Do you want to hurt yourself or someone else? Patient reports no desire to harm self or others. Onset of symptoms is unknown. 01:02 Method Of Arrival: EMS: [facility] vc1 01:02 Acuity: TROY 3 vc1 Triage Assessment: 01:07 General: Appears in no apparent distress. comfortable, obese, Behavior is cooperative. vc1 Pain: Denies pain. EENT: No deficits noted. Neuro: Level of Consciousness is awake, obeys commands, Oriented to person, place. Neuro: Reports weakness. Cardiovascular: Capillary refill < 3 seconds Patient's skin is warm and dry. Respiratory: Airway is patent Respiratory effort is even, unlabored, shallow, Respiratory pattern is symmetrical. GI: No deficits noted. : No deficits noted. Derm: No deficits noted. Musculoskeletal: No deficits noted. Historical: - Allergies: 01:06 valsartan; vc1 - Home Meds: 01:06 None [Active]; vc1 - PMHx: 01:06 Asthma; COPD; Hypertension; vc1 - PSHx: 01:06 None; vc1 - Immunization history:: Adult Immunizations up to date. - Social history:: Smoking status: Patient denies any tobacco usage or history of. - Family history:: not pertinent. - Hospitalizations: : No recent hospitalization is reported. Screenin:09 Abuse screen: Denies threats or abuse. Nutritional screening: No deficits noted. vc1 Tuberculosis screening: No symptoms or risk factors identified. Fall Risk None identified. Assessment: 01:10 Reassessment: See triage assessment. vc1 02:27 Reassessment: No changes from previously documented assessment. Patient and/or family vc1 updated on plan of care and expected duration. Pain level reassessed. 03:30 Reassessment: No changes from previously documented assessment. Patient and/or family vc1 updated on plan of care and expected duration. Pain level reassessed. 04:30 Reassessment: No changes from previously documented assessment. Patient and/or family vc1 updated on plan of care and expected duration. Pain level reassessed. Vital Signs: 01:02 BP 105 / 71; Pulse 107; Resp 16; Temp 98.1(O); Pulse Ox 96% on R/A; Weight 48.53 kg; vc1 Height 5 ft. 7 in. (170.18 cm); Pain 0/10; 01:08 Pulse Ox 98% on 2 lpm NC; vc1 02:28 BP 115 / 65; Pulse 89; Resp 16; Pulse Ox 100% on 2 lpm NC; vc1 04:29 BP 108 / 68 RA (man/); tw5 04:29 BP 102 / 64 LA (man/); tw5 11:16 Weight 81.65 kg; ph 11:16 Body Mass Index 28.19 (81.65 kg, 170.18 cm) ph ED Course: 01:00 Patient arrived in ED. rn 01:00 Adam Eldridge MD is Attending Physician. rn 01:06 Triage completed. vc1 01:09 Arm band placed on left wrist. vc1 01:09 Patient has correct armband on for positive identification. Bed in low position. Client vc1 placed on continuous cardiac and pulse oximetry monitoring. NIBP monitoring applied. 01:18 XRAY Chest (1 view) In Process Unspecified. EDMS 02:12 Notified ED physician of a critical lab result(s). trop 84.9 Dr Eldridge notified. bb 02:18 Notified ED physician of a critical lab result(s). Covid positive Dr Eldridge notified. bb 02:47 Manny Sanchez MD is Hospitalizing Provider. rn 04:30 No provider procedures requiring assistance completed. Patient admitted, IV remains in vc1 place. 04:38 Inserted saline lock: 22 gauge in left wrist, using aseptic technique. Blood collected. vc1 05:24 Terri Heaton RN is Primary Nurse. vc1 07:56 Primary Nurse role handed off by Terri Heaton RN eb 08:16 aNtasha Reddy, RENA is Primary Nurse. ph Administered Medications: 02:10 Drug: NS 0.9% 500 ml Route: IV; Rate: bolus; Site: right antecubital; vc1 02:40 Follow up: IV Status: Completed infusion; IV Intake: 500ml vc1 03:01 Drug: Aspirin Chewable Tablet 324 mg Route: PO; vc1 03:30 Follow up: Response: No adverse reaction vc1 04:20 Drug: NS 0.9% 1000 ml Route: IV; Rate: 1 bolus; Site: right antecubital; vc1 05:26 Follow up: IV Status: Infusion continued upon admission vc1 08:40 Drug: Lovenox (enoxaparin) 1 mg/kg Route: Sub-Q; Site: right lower abdomen; ph 09:00 Follow up: Response: No adverse reaction ph Medication: 01:09 VIS not applicable for this client. vc1 Intake: 02:40 IV: 500ml; Total: 500ml. vc1 Outcome: 02:48 Decision to Hospitalize by Provider. rn 04:30 Admitted to ER Hold. Please see [facility] for further documentation. vc1 04:30 Condition: stable 04:30 Instructed on the need for admit. 12:07 Patient left the ED. ph Signatures: Dispatcher [employer] EDMS Wendy Estrada RN RN bb Nieto, Roman, MD MD rn Hall, Patricia, RN RN Coco Briggs Tiffany tw5 Terri Heaton RN RN vc1 Corrections: (The following items were deleted from the chart) 04:30 04:29 BP 108 / 68 Manual R Leg; tw5 tw5
[2021-10-16 02:50] LABS: Blood Morphology Comment NOT SEEN (NOT SEEN); Platelet Estimate ADEQ
[2021-10-16] MEDS ORDERED: ASPIRIN 81 MG CHEWABLE TABLET ONE ×2 (03:03→03:06)
--- NOTE | 2021-10-16 03:43 | P.HP ---
Certification for Inpatient Patient admitted to: Inpatient With expected LOS: >2 Midnights Patient will require the following post-hospital care: None Practitioner: I am a practitioner with admitting privileges, knowledge of patient current condition, hospital course, and medical plan of care. Services: Services provided to patient in accordance with Admission requirements found in Title 42 Section 412.3 of the Code of Federal Regulations <Addy Mahan - Last Filed: 10/16/21 03:33> Patient History Date of Service: 10/16/21 Primary Care Provider: Unknown, saw Dr. Canas in 2019 but patient does not believe she still sees Reason for admission: COVID-19, weakness, elevated troponin History of Present Illness: 81-year-old female with history of COPD on chronic home oxygen, hypertension, questionable history of congestive heart failure/valve replacement in the past was brought into the emergency room by EMS from a hotel as her family had reportedly called EMS multiple times throughout the course the day yesterday with concern for generalized weakness, COVID symptoms and shortness of breath. Patient is very poor historian appears to have dementia reports that she may be having some increased dyspnea on exertion over the course of the last few days. She cannot tell me much about her past medical history but she denies taking any daily medications. Chart review shows a couple of admissions for CHF/COPD but her last admission in 2014 the attending physician did not believe that she had congestive heart failure and her echocardiogram was normal. Patient also had elevated glucose during her previous admissions and was taking insulin during that time likely a type II diabetic. She was evaluated here in the emergency department and her labs were significant for high sensitive troponin 84.9, BNP 4556, creatinine 1.62, GFR 31, COVID PCR positive chest x-ray negative for acute findings patient appears very dry and weak unable to stand without assistance at this time. Wanted to admit for further evaluation and management of COVID-19, debility, elevated troponin. I have added a D-dimer to rule out PE. Unsure if patient is supposed to be on anticoagulation given questionable valve repair and unexplained elevated troponin. - Past Medical/Surgical History Diabetic: Yes -: Diabetes -: Hyperlipidemia -: Sleep apnea -: Vertigo -: CHF? 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 - Family History Mother -: Heart disease Sister -: Diabetes - Social History Smoking Status: Never smoker Alcohol use: No CD- Drugs: No Caffeine use: Yes <Addy Mahan - Last Filed: 10/16/21 03:33> Date of Service: 10/16/21 <Manny Sanchez - Last Filed: 10/16/21 16:12> Allergies valsartan Allergy (Intermediate, Verified 10/16/21 12:43) Unknown losartan [Losartan] Allergy (Verified 09/24/14 15:56) Hives/Rash Home Medications: Ascorbate Calcium [Vitamin C] 1,000 mg PO DAILY 02/17/12 Insulin Detemir [Levemir*] 20 unit SQ BEDTIME 02/17/12 Insulin Detemir [Levemir*] 23 unit SQ BREAKFAST 02/17/12 Metformin HCl [Glucophage*] 1,000 mg PO BIDWM 02/17/12 Multivitamin [Gqm-Snroei-Elayb] 1 each PO DAILY 02/17/12 [place]-3/Dha/Epa/Fish Oil [[place]-3 Fish Oil 1,000 mg Sfgl] 300 mg PO DAILY 02/17/12 Simvastatin 20 mg PO BEDTIME 02/17/12 Alendronate Sodium [Fosamax] 35 mg PO Q7D 09/24/14 Aspirin [Aspirin EC 81 MG] 81 mg PO DAILY 09/24/14 Metoprolol Tartrate 50 mg PO BID 09/24/14 Trazodone [Desyrel*] 50 mg PO BEDTIME 09/24/14 Furosemide [Lasix*] 40 mg PO DAILY #15 tab 09/26/14 Potassium Chloride [Klor-Con 10] 10 meq PO DAILY #15 tablet.er 09/26/14 clonazePAM [Klonopin] 0.5 mg PO TID PRN #60 tab 01/25/15 Review of Systems 10-point ROS is otherwise unremarkable Respiratory: SOB with Excertion <Addy Mahan - Last Filed: 10/16/21 03:33> Physical Examination - Physical Exam General: Alert, In no apparent distress, Oriented x2 HEENT: Atraumatic, PERRLA, Other (Mucous membranes dry), EOMI, Sclerae nonicteric Neck: Supple, 2+ carotid pulse no bruit, No LAD, Without JVD or thyroid abnormality Respiratory: Clear to auscultation bilaterally, Normal air movement Cardiovascular: Regular rate/rhythm, Normal S1 S2 Gastrointestinal: Normal bowel sounds, No tenderness Musculoskeletal: No tenderness Integumentary: No rashes Neurological: Normal speech, Normal tone, Sensation intact, Normal affect - Studies Laboratory Data (last 24 hrs) 10/16/21 01:22: Sodium 137, Potassium 3.8, BUN 26 H, Creatinine 1.62 H, Glucose 162 H 10/16/21 01:22: WBC 6.0, Hgb 13.9, Hct 41.7, Plt Count 204 <Addy Mahan - Last Filed: 10/16/21 03:33> - Studies Laboratory Data (last 24 hrs) 10/16/21 01:22: Sodium 137, Potassium 3.8, BUN 26 H, Creatinine 1.62 H, Glucose 162 H 10/16/21 01:22: WBC 6.0, Hgb 13.9, Hct 41.7, Plt Count 204 <Manny Sanchez - Last Filed: 10/16/21 16:12> Assessment and Plan - Plan Assessment: Weakness/debility likely secondary to COVID-19 viral illness Elevated troponin/BNP Diabetes mellitus type [id number] Hypertension Suspected underlying dementia History of aortic valve repair 2012unknown anticoagulation status Plan: Weakness/debility likely secondary to COVID-19 viral illness: Pt unable to stand without assistance at this time, unknown baseline, family reportedly called multiple times for EMS to the hotel which she is currently living at, patient unable to tell me why she is currently staying at the hotel or where she usually lives. Family not available for interview at this time. Patient not aware that she had COVID likely new. She has oxygen at home for diagnosis of COPD she is currently saturating 100% on 2 L nasal cannula. Patient evaluated by physical therapy attempt reach out to family with psych social worker and figure out patient's living arrangement. Elevated troponin/BNP: Previously documented history of CHF although in 2014 attending physician did not believe that she had CHF, it was documented that her echocardiogram was normal at that time. Mild elevation in high-sensitivity troponin patient denies any chest pain however D-dimer which is pending. Patient reports dyspnea on exertion. Echocardiogram ordered, cardiology consulted. Patient appears very dry at this time chest x-ray without any volume overload no edema to lower extremities we will continue gentle hydration at this time. Diabetes mellitus type [id number]: Patient not currently take any medications at home we will obtain A1c mild sliding scale insulin. Hypertension: Not on any home medications, blood pressure stable at this time we will add low-dose beta-lachelle with hold parameters given elevated troponin/possible underlying heart disease. Suspected underlying dementia: Patient oriented x2-3 appears confused, unknown baseline could also be related to COVID/metabolic encephalopathy. We will need to speak with family to determine patient's baseline. No focal neurological deficits History of aortic valve repair 2011unknown anticoagulation status: Per chart review patient with aortic valve replacement in 2011 she reports she was never on blood thinners in the past although she is a poor historian. Echocardiogram was ordered. We will continue to review chart and attempt to determine if patient is supposed been anticoagulation. D-dimer ordered to rule out pulmonary embolism. DVT PPX: Heparin Code status: Full Discharge Plan: Home Plan to discharge in: 48 Hours - Advance Directives Does patient have a Living Will: No Does patient have a Durable POA for Healthcare: Yes - Code Status/Comfort Care Code Status Assessed: Yes (Full code) Critical Care: No Time Spent Managing Pts Care (In Minutes): 70 <Addy Mahan - Last Filed: 10/16/21 03:33> Physician Review: Patient Assessed, Agree with Above Assessment and Plan <Manny Sanchez - Last Filed: 10/16/21 16:12>
[2021-10-16] MEDS ORDERED: NA CHLORIDE 0.9% 1,000 ML ONE (04:22)
[2021-10-16 04:54] VITALS: BMI 16.7
[2021-10-16] MEDS: NA CHLORIDE 0.9% 1,000 ML IV SCH ×2 (04:56→12:31)
[2021-10-16] MEDS ORDERED: ACETAMINOPHEN 500 MG TAB PO PRN (04:56)
[2021-10-16] MEDS ORDERED: ALBUTEROL 2.5 MG/3 ML NEB SOL NEB PRN (04:56)
[2021-10-16] MEDS ORDERED: ONDANSETRON 4 MG/2 ML VIAL IV PRN (04:56)
[2021-10-16] MEDS: METOPROLOL TAR 25 MG TAB PO SCH ×2 (05:21→17:48)
[2021-10-16] MEDS: INSULIN -REGULAR HUMAN 50 UNIT/0.5 ML ML SQ SCH ×4 (07:30→21:00)
[2021-10-16] MEDS ORDERED: HEPARIN 5000 UNIT/ML 1 ML VIAL SQ SCH (09:00)
[2021-10-16] MEDS: ASPIRIN EC 81 MG TAB PO SCH (09:00)
--- NOTE | 2021-10-16 10:32 | EKG ---
Test Date: 2021-10-16 Test Time: 01:06:33 Cop Breaker: MOE MEASUREMENT RESULTS: Intervals: Rate: 104 IL: 164 QRSD: 94 QT: 344 QTc: 452 [place]: P: 76 IL: 164 QRS: -10 T: 81 INTERPRETIVE STATEMENTS: Sinus tachycardia Otherwise normal ECG Compared to ECG 11/29/2018 23:44:56 No significant changes Electronically Signed On 10-16-21 10:31:17 CDT by Amaury Rubalcava
--- NOTE | 2021-10-16 11:25 | ECHO ---
HEIGHT: 5 ft 7 in WEIGHT: 106 lb 15.845 oz DATE OF STUDY: 10/16/[address]: Addy Mahan NP 2-DIMENSIONAL: YES M.MODE: YES DOPPLER: YES COLOR FLOW: YES TDS: PORTABLE: YES DEFINITY: BUBBLE STUDY: DIAGNOSIS: ELEVATED TROPONIN, HISTORY OF CONGESTIVE HEART FAILURE CARDIAC HISTORY: CATHERIZATION: NO SURGERY: YES PROSTHETIC VALVE: YES PACEMAKER: NO MEASUREMENTS (cm) DIASTOLIC (NORMALS) SYSTOLIC (NORMALS) IVSd 1.3 (0.6-1.2) LA Diam 4.9 (1.9-4.0) LVEF 56% LVIDd 2.4 (3.5-5.7) LVIDs 1.7 (2.0-3.5) %FS 27% LVPWd 1.4 (0.6-1.2) Ao Diam 2.0 (2.0-3.7) 2 DIMENSIONAL ASSESSMENT: RIGHT ATRIUM: NORMAL LEFT ATRIUM: DILATED RIGHT VENTRICLE: NORMAL LEFT VENTRICLE: LEFT VENTRICULAR HYPERTROPHY TRICUSPID VALVE: NORMAL MITRAL VALVE: MITRAL STENOSIS PULMONIC VALVE: NORMAL AORTIC VALVE: STATUS POST AORTIC VALVE REPLACEMENT PERICARDIAL EFFUSION: NONE AORTIC ROOT: NORMAL LEFT VENTRICULAR WALL MOTION: NORMAL EJECTION FRACTION DOPPLER/COLOR FLOW: MILD MITRAL STENOSIS - 1.6 CENTIMETERS SQUARED. STATUS POST AORTIC VALVE REPLACEMENT - NORMAL FUNCTION. COMMENTS: LEFT VENTRICULAR HYPERTROPHY. MILD MITRAL STENOSIS. STATUS POST AORTIC VALVE REPLACEMENT - NORMAL. DECREASED LEFT VENTRICULAR COMPLIANCE. TECHNOLOGIST: DASIA SHANKS
[2021-10-16] MEDS ORDERED: ENOXAPARIN 80 MG/0.8 ML SQ ONE (11:26)
--- NOTE | 2021-10-16 11:32 | RAD REPORT ---
EXAM DESCRIPTION: Chest Single View 10/16/2021 2:00 AM CDT CLINICAL HISTORY: 81 years, Female, DYSPNEA COMPARISON: None. FINDINGS: Single view of the chest was obtained portable. No prior films are available for compariso n. Sternotomy wires and pericardial clips suggest previous CABG. The cardiomediastinal silhouette d emonstrate to be unremarkable. The heart is not enlarged. The thoracic aorta demonstrate to be unrema rkable. The pulmonary vasculature is normal distribution. Costophrenic angles are sharp. No areas o f consolidation or masses are seen. There are degenerative changes at bilateral shoulders. The rest o f the soft tissue and bony structures demonstrate to be unremarkable. IMPRESSION: No acute cardiopulmonary disease identified. Status post CABG. Electronically signed by: Ever Hicks MD 10/16/2021 2:01 AM CDT Due to temporary technical issues with the PACS/Fluency reporting system, reports are being signed by the in house radiologists without review as a courtesy to insure prompt reporting. The interpreting radiologist is fully responsible for the content of the report.
--- NOTE | 2021-10-16 11:45 | RAD REPORT ---
EXAM DESCRIPTION: CT CHEST ANGIOGRAPHY WITH IV CONTRAST CLINICAL HISTORY: Pulmonary embolism (PE) suspected, positive D-dimer COMPARISON: None. TECHNIQUE: CT CHEST ANGIOGRAPHY WITH IV CONTRAST on 10/16/2021 5:16 AM CDT. MIPS reconstructions were generated. This exam was performed according to our departmental dose-optimization program, which includes autom ated exposure control, adjustment of the mA and/or kV according to patient size and/or use of iterati ve reconstruction technique. MIP images were generated. FINDINGS: Thoracic aorta is normal in course and caliber without aneurysm or dissection. Pulmonary a rteries are somewhat suboptimally opacified with extensive mixing artifact. There is a small filling defect within the medial right middle lobe segmental pulmonary artery branch. There may be a small pr oximal right lower lobe pulmonary embolus as well. The heart is normal in size. Sternotomy and CABG were performed along with possible aortic valve repl acement. There is no pericardial effusion. Intrathoracic lymph nodes are not enlarged. There is no pleural effusion, pleural thickening or pneumothorax. Central airways are patent. Lungs a re clear with no consolidation, mass or interstitial lung disease. In the upper abdomen, the liver is nodular in contour with prior cholecystectomy. There are no acut e osseous findings. No suspicious bony lesions. IMPRESSION: Small right middle lobe embolus with a questionable tiny right lower lobe pulmonary embo junior. Electronically signed by: Sheldon Edwards MD 10/16/2021 6:56 AM CDT Due to temporary technical issues with the PACS/Fluency reporting system, reports are being signed by the in house radiologists without review as a courtesy to insure prompt reporting. The interpreting radiologist is fully responsible for the content of the report.
[2021-10-16] MEDS: ENOXAPARIN 80 MG/0.8 ML SQ SCH ×2 (16:14→21:01)
[2021-10-16] MEDS ORDERED: ATORVASTATIN 40 MG TAB PO SCH (21:00)
[2021-10-16 23:20] VITALS: O2SAT 97
[2021-10-17] MEDS: NA CHLORIDE 0.9% 1,000 ML IV SCH (01:01)
[2021-10-17 01:50] LABS: Urine Bilirubin Negative (Negative); Urine Blood 2+ (Negative); Urine Clarity Clear (Clear); Urine Color Yellow (Yellow); Urine Glucose Negative (Negative); Urine Protein 1+ (Negative); Urine Urobilinogen 0.2 mg/dL (0.2-1.0); Urine pH 5.5 (5.0-7.0)
[2021-10-17 02:06] LABS: Urine Bacteria Loaded /HPF (<20)
[2021-10-17 05:09] LABS: Hematocrit 34.8 % (36.0-45.0); Lymphocytes % 25.1 % (15.3-44.8); MCV 94.4 fL (80-100); MPV 8.5 fL (7.6-11.3); RBC Red Blood Cell Count 3.69 M/uL (3.86-4.86)
[2021-10-17 05:45] LABS: Albumin 2.9 g/dL (3.4-5.0); Bilirubin Total 0.4 mg/dL (0.2-1.0); Potassium 4.4 mmol/L (3.5-5.1); Protein, Total 5.9 g/dL (6.4-8.2); Thyroid Stimulating Hormone 3.13 uIU/mL (0.360-3.740)
[2021-10-17] MEDS: METOPROLOL TAR 25 MG TAB PO SCH (06:13)
[2021-10-17] MEDS: INSULIN -REGULAR HUMAN 50 UNIT/0.5 ML ML SQ SCH ×2 (07:30→11:30)
[2021-10-17] MEDS: ASPIRIN EC 81 MG TAB PO SCH (08:50)
[2021-10-17] MEDS: ENOXAPARIN 80 MG/0.8 ML SQ SCH (08:50)
[2021-10-17] MEDS ORDERED: CEPHALEXIN 500 MG CAP PO SCH (10:00)
[2021-10-17] MEDS ORDERED: CEPHALEXIN 250 MG CAP PO SCH (10:00)
[2021-10-17] MEDS ORDERED: APIXABAN 5 MG TABLET PO SCH (10:00)
[2021-10-17 12:27] VITALS: BP 140/68; TEMP 97.9
--- NOTE | 2021-10-17 12:41 | P.DS ---
Admission Date: 10/16/21 Discharge Date: 10/17/21 Primary Care Provider: Unknown Disposition: ROUTINE DISCHARGE Discharge Condition: GOOD Reason for Admission: COVID-19, weakness, elevated troponin Hospital Course: DIAGNOSES: # Acute Small Right Middle Lobe Pulmonary Embolism with possible Right Lower Lobe Pulmonary Embolism # Minimally Symptomatic COVID-19 Infection # Urinary Tract Infection with Microscopic Hematuria # Type II NSTEMI (Demand Ischemia) # KDIGO Stage I Acute Kidney Injury # Coronary Artery Disease s/p CABG # S/P Aortic Valve Repair (2011) # Type II Diabetes Mellitus # Hypertension HOSPITAL COURSE: Ms. Jolly Thayer is a pleasant 81 year old female with a past medical history significant for coronary artery disease s/p CABG, type II diabetes mellitus, hypertension, and s/p aortic valve repair (2011) who was admitted to the [facility] on 10/16/2021 for generalized weakness and shortness of breath. She was admitted to the Medicine service for further evaluation. Initially, there was concern for confusion, but neither myself nor the nursing staff have noted this since admission. Upon further evaluation, she was found to have COVID-[address] chest angiogram, "small right middle lobe embolus with a questionable tiny right lower lobe pulmonary embolus." A chest x-ray revealed, "No acute cardiopulmonary disease identified. Status post CABG." A transthoracic echocardiogram revealed, "left ventricular hypertrophy. mild mitral stenosis. status post aortic valve replacement normal. decreased left ventricular compliance." Her troponin was mildly elevated but down trended to within normal limits; it was thought to represent a type II NSTEMI (demand ischemia). Additionally, she was found to have a urinary tract infection with microscopic hematuria as well as a KDIGO stage I acute kidney injury. She was treated with intravenous fluids as well as antibiotics, with improvement of her symptoms. She was given a prescription for cephalexin and advised to follow-up with her PCP regarding the microscopic hematuria, as this can rarely be a sign of urologic malignancy. On 10/17/2021, she was seen on morning rounds and deemed medically stable for discharge. She was discharged with instructions to schedule follow-up appointments with her PCP in 3-5 days as well as with pulmonary medicine (Dr. Casarez) in 5-7 days. She was provided prescriptions for cephalexin and apixaban. She was given the opportunity to ask questions and reported no further questions. Furthermore, all questions were answered to the best of my ability. Today, I personally spent 20 minutes with her, of which greater than 50% of the time was spent in patient education, counseling, and coordination of care as described above. Vital Signs/Physical Exam: Temp Pulse Resp BP Pulse Ox 97.9 F 78 18 140/68 98 10/17/21 12:00 10/17/21 12:00 10/17/21 12:00 10/17/21 12:00 10/17/21 12:00 General: Alert, In no apparent distress, Oriented x3 HEENT: Atraumatic, PERRLA, Mucous membr. moist/pink, EOMI, Sclerae nonicteric Neck: Supple, JVD not distended Respiratory: Clear to auscultation bilaterally, Normal air movement, Other (Walked around nursing pod several times with RN and SPO2 remained above 96% on room air) Cardiovascular: No edema, Regular rate/rhythm, Normal S1 S2, No gallops, No rubs, No murmurs Gastrointestinal: Normal bowel sounds, Soft and benign, Non-distended, No tenderness, No rebound, No guarding Musculoskeletal: No clubbing Integumentary: No rashes Neurological: Normal speech, Normal strength at 5/5 x4 extr, Cranial nerves 3-12 intact, Normal affect Laboratory Data at Discharge: WBC 4.0 K/uL (4.3-10.9) L D 10/17/21 04:22 Hgb 11.7 g/dL (12.0-15.0) L 10/17/21 04:22 Hct 34.8 % (36.0-45.0) L D 10/17/21 04:22 Plt Count 175 K/uL (152-406) 10/17/21 04:22 Sodium 140 mmol/L (136-145) 10/17/21 04:22 Potassium 4.4 mmol/L (3.5-5.1) 10/17/21 04:22 BUN 21 mg/dL (7-18) H 10/17/21 04:22 Creatinine 1.16 mg/dL (0.55-1.3) 10/17/21 04:22 Glucose 94 mg/dL (74-106) 10/17/21 04:22 Total Bilirubin 0.4 mg/dL (0.2-1.0) 10/17/21 04:22 AST 99 U/L (15-37) H 10/17/21 04:22 ALT 19 U/L (12-78) 10/17/21 04:22 Alkaline Phosphatase 68 U/L (45-117) 10/17/21 04:22 Triglycerides 178 mg/dL (<150) H 10/17/21 04:22 Cholesterol 161 mg/dL (<200) 10/17/21 04:22 HDL Cholesterol 33 mg/dL (40-60) L 10/17/21 04:22 Cholesterol/HDL Ratio 4.88 10/17/21 04:22 Home Medications: Ascorbate Calcium [Vitamin C] 1,000 mg PO DAILY 02/17/12 Insulin Detemir [Levemir*] 23 unit SQ BREAKFAST 02/17/12 Metformin HCl [Glucophage*] 1,000 mg PO BIDWM 02/17/12 Multivitamin [Bcc-Fgreut-Vxced] 1 each PO DAILY 02/17/12 [place]-3/Dha/Epa/Fish Oil [[place]-3 Fish Oil 1,000 mg Sfgl] 300 mg PO DAILY 02/17/12 Simvastatin 20 mg PO BEDTIME 02/17/12 Alendronate Sodium [Fosamax] 35 mg PO Q7D 09/24/14 Aspirin [Aspirin EC 81 MG] 81 mg PO DAILY 09/24/14 Trazodone [Desyrel*] 50 mg PO BEDTIME 09/24/14 Furosemide [Lasix*] 40 mg PO DAILY #15 tab 09/26/14 Potassium Chloride [Klor-Con 10] 10 meq PO DAILY #15 tablet.er 09/26/14 clonazePAM [Klonopin*] 0.5 mg PO TID PRN #60 tab 01/25/15 Apixaban [Eliquis] 2.5 mg PO BID #60 tab 10/17/21 Cephalexin [Keflex*] 500 mg PO BID #14 cap 10/17/21 Metoprolol Tartrate [Lopressor*] 12.5 mg PO BID 6AM 6PM #60 tab 10/17/21 New Medications: Apixaban [Eliquis] 2.5 mg PO BID #60 tab Cephalexin [Keflex*] 500 mg PO BID #14 cap Metoprolol Tartrate [Lopressor*] 12.5 mg PO BID 6AM 6PM #60 tab Physician Discharge Instructions: 1. Please schedule follow-up with your PCP in 3-5 days 2. Please schedule follow-up with Pulmonary (Dr. Casarez) in 5-7 days Please make sure to wear a mask, maintain at least 6 feet distance, and wash hands frequently as you may be contagious from COVID-19. Diet: Regular Activity: Ad nate Followup: Efren Casarez MD [ACTIVE - CAN ADMIT] - Unknown,U [Primary Care Provider] - Time spent managing pt's care (in minutes): 20
[2021-10-17] MEDS ORDERED: ALBUTEROL 2.5 MG/3 ML NEB SOL NEB PRN (15:00)
--- NOTE | 2021-10-17 15:09 | CON ---
Date of Consultation: 10/16/2021 Reason For Consultation: Elevated troponin, weakness, and cough and COVID positive. History Of Present Illness: Ms. Thayer is 81, has a history of aortic stenosis status post valve replacement. Has a history of hypertension, COPD, normal coronaries in 2019, came in with weakness, was coughing, COVID positive. Had no cardiac symptoms. Denied PND, orthopnea, pedal edema, palpita tions, or syncope. Her main complaint was weakness and shortness of breath. Denies any chest pain. Past Medical History: As stated above. Allergies: SHE IS ALLERGIC TO LOSARTAN AND VALSARTAN. Review of Systems: Negative. Social History: Negative. Family History: Negative. Medications: Listed by Dr. Sanchez. Physical Examination: General: She appeared her stated age. No acute distress. Vital signs: Stable, sinus rhythm, afebrile. HEENT: Negative. Neck: Supple. No bruit, lymphadenopathy, JVD, or thyromegaly. Chest: Clear to auscultation and percussion. Cardiac: Revealed a regular rhythm and rate. No murmurs, gallops, or rubs. Abdomen: Benign. Extremities: Revealed clubbing, cyanosis, or edema. Diagnostic Data: Shows BNP was 4556. Troponin was 84. D-dimer was 7364. Creatinine is 1.62. Ches t x-ray showed pneumonia. CTA was pending. Impression And Plan: 1.Elevated troponin, D-dimer and BNP secondary to COVID. 2.Renal insufficiency. 3.Status post aortic valve replacement, normal coronaries in 2019. Her other problems include; 1.Hypertension and chronic obstructive pulmonary disease. I would like to get another echocardiogra m on Ms. Thayer, until then her elevation of enzymes are secondary to COVID and demand ischemia. I would like to state she had normal coronaries in 2019. No need to do any stress testing. I will see what the echo shows before making further decisions. FARHAN/NIDHI Voice ID: [id number] Report ID: [id number]
--- NOTE | 2021-10-17 15:10 | EKG ---
Test Date: 2021-10-16 Test Time: 04:17:53 Healthcare Financial Analyst: MOE MEASUREMENT RESULTS: Intervals: Rate: 92 GA: 164 QRSD: 90 QT: 370 QTc: 457 [place]: P: 60 GA: 164 QRS: 3 T: 53 INTERPRETIVE STATEMENTS: Normal sinus rhythm Normal ECG Compared to ECG 10/16/2021 01:06:33 Sinus tachycardia no longer present Electronically Signed On 10-17-21 15:08:33 CDT by Jim Sanchez
--- NOTE | 2021-10-18 01:46 | PN ---
Date of Progress Note: 10/17/2021 Ms. Thayer came in with an elevated D-dimer. She had a CT angiogram that showed small pulmonary emboli, elevated troponin, COVID, Elevated D-dimer, and BNP. Renal insufficiency. She is status pos t aortic valve replacement, had normal coronary arteries in 2019, has also hypertension and COPD. Ec hocardiogram showed mild mitral stenosis, normal ejection fraction, normally functioning aortic valve . I believe her elevated troponin is secondary to echo with pulmonary embolus, this is demand ischem ia. No further cardiac workup is warranted at this point. Continue present regimen. We will see he r in the office as an outpatient and continue present medication at this point. FARHAN/NIDHI Voice ID: [id number] Report ID: [id number]
== END 2021-10-17 15:21 | disposition home or self-care (01) ==
LOC: ER 00:55 → ERHOLD 03:22 → INTOOBSV 03:22 → 4TH 11:33
PROVIDERS: ADMIT Internal Medicine; ATTEND Internal Medicine
DX: U07.1 COVID-19 (principal); I21.A1 Myocardial infarction type 2; I26.99 Other pulmonary embolism without acute cor pulmonale; N17.9 Acute kidney failure, unspecified; N39.0 Urinary tract infection, site not specified; R31.29 Other microscopic hematuria; N28.9 Disorder of kidney and ureter, unspecified; J44.9 Chronic obstructive pulmonary disease, unspecified; I25.10 Atherosclerotic heart disease of native coronary artery without angina pectoris; I10 Essential (primary) hypertension; E11.9 Type 2 diabetes mellitus without complications; E78.5 Hyperlipidemia, unspecified; G47.30 Sleep apnea, unspecified; Z95.2 Presence of prosthetic heart valve; Z95.1 Presence of aortocoronary bypass graft; Z99.81 Dependence on supplemental oxygen; Z79.84 Long term (current) use of oral hypoglycemic drugs; Z79.82 Long term (current) use of aspirin; Z79.01 Long term (current) use of anticoagulants; Z79.899 Other long term (current) drug therapy; Z88.8 Allergy status to other drugs, medicaments and biological substances; Z82.49 Family history of ischemic heart disease and other diseases of the circulatory system; Z83.3 Family history of diabetes mellitus
CPT/HCPCS: 96361; 93005 ×2; 93306; 87040 ×2; 87088; 85025 ×2; 81001; 87086; 80048; 36415 ×2; 80061; 82947 ×5; 85379; 84443; 87077; 87186; 83036; 84484 ×3; 84439; 80053; 83880; 71275; 71045; 97116; 97161; 97530 ×4; 96360; 96372; 99285; U0003; Q9967; J7040; J7030 ×3

== ENCOUNTER 2022-02-19 18:59 | Emergency (ER) | payer OTHER ==
[2022-02-19] MEDS ORDERED: NA CHLORIDE 0.9% 500 ML ONE (19:43)
[2022-02-19 20:04] LABS: Absolute Lymphocytes (CBC) 1.1 K/uL (0.7-4.9); Lymphocytes % 15.1 % (15.3-44.8); MCV 94.5 fL (80-100); MPV 8.1 fL (7.6-11.3); RBC Red Blood Cell Count 4.23 M/uL (3.86-4.86)
[2022-02-19 20:17] LABS: SARS-CoV-2 Antigen Rapid Res Negative (Negative)
[2022-02-19 20:21] LABS: Albumin 3.8 g/dL (3.4-5.0); Bilirubin Direct 0.2 mg/dL (0-0.2); Bilirubin Total 0.8 mg/dL (0.2-1.0); Potassium 3.9 mmol/L (3.5-5.1); Protein, Total 7.4 g/dL (6.4-8.2); Troponin High Sensitivity 26.5 pg/mL (<58.9)
--- NOTE | 2022-02-19 20:25 | RAD REPORT ---
EXAM DESCRIPTION: RAD - Chest Single View - 02/19/2022 8:18 pm CLINICAL HISTORY: COUGH Chest pain. COMPARISON: Chest Single View dated 10/16/2021; Chest Single View dated 11/30/2018; Chest Pa And Lat (2 Views) dated 08/09/2018; Chest Pa And Lat (2 Views) dated 10/20/2017 FINDINGS: Portable technique limits examination quality. The lungs are emphysematous but grossly clear. The heart is mildly prominent in size. No displaced fr actures.Sternotomy wires. IMPRESSION: Mild COPD.
[2022-02-19 20:31] LABS: Protime INR 1.11
[2022-02-19 21:01] LABS: Urine Blood Trace-intact (Negative); Urine Glucose Negative (Negative); Urine Protein 2+ (Negative); Urine Specific Gravity >=1.030 (1.005-1.030); Urine pH 5.5 (5.0-7.0)
[2022-02-19] MEDS ORDERED: CIPROFLOXACIN HCL 500 MG TAB ONE (21:27)
[2022-02-19] MEDS ORDERED: CEFTRIAXONE 1000 MG/VIAL ONE (21:28)
--- NOTE | 2022-02-19 21:31 | ER ---
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 EMS stated son called police to perform a well fair check since patient's is in the hospital and patient has been home alone and not able to get a hold of the patient today. Patient has a history of Dementia and Alzheimer. Patient alert and orientated per age appropriate for patient. 19:10 Method Of Arrival: EMS: [facility] pf1 19:10 Coronavirus screen: At this time, the client does not indicate any symptoms associated pf1 with coronavirus-19. Ebola Screen: Patient negative for fever greater than or equal to 101.5 degrees Fahrenheit, and additional compatible Ebola Virus Disease symptoms. Initial Sepsis Screen: Does the patient meet any 2 criteria?. Initial Sepsis Screen: Does the patient meet any 2 criteria? No. Patient's initial sepsis screen is negative. Does the patient have a suspected source of infection? No. Patient's initial sepsis screen is negative. Risk Assessment: Do you want to hurt yourself or someone else? Patient reports no desire to harm self or others. 19:10 Acuity: TROY 3 pf1 19:10 Note [facility] stated submitted APS report on patient ACETYLENE CYLINDER P[employer]ING MIXER. pf1 22:32 Onset of symptoms was February 19, 2022. pf1 Triage Assessment: 19:10 General: Appears in no apparent distress. comfortable, unkempt, Behavior is calm, pf1 cooperative, appropriate for age, quiet, Smells of body odor. 19:10 Pain: Denies pain. EENT: No deficits noted. Neuro: Reports [facility] reports patient pf1 has history of dementia and alzeihiemer. Cardiovascular: No deficits noted. Murmur present Capillary refill < 3 seconds. Respiratory: No deficits noted. Breath sounds are clear bilaterally. GI: No deficits noted. Abdomen is flat, non-distended, Last BM was February 19, 2022. Bowel sounds present X 4 quads. : No deficits noted. Urine is cloudy, Last void was February 19, 2022. Derm: No deficits noted. Musculoskeletal: Circulation, motion, and sensation intact. Capillary refill < 3 seconds. Historical: - Allergies: 19:10 valsartan; pf1 19:10 Unable to obtain; pf1 - PMHx: 22:33 Diabetes mellitus; pf1 - Immunization history:: Adult Immunizations not up to date, Client reports having NOT received the Covid vaccine. - Social history:: Smoking status: Patient denies any tobacco usage or history of. Screenin:10 Abuse screen: Denies threats or abuse. pf1 19:10 Nutritional screening: No deficits noted. Tuberculosis screening: No symptoms or risk pf1 factors identified. Fall Risk IV access (20 points). Gait- Normal/Bed Rest/Wheelchair (0 pts) Mental Status- Oriented to own ability (0 pts). Assessment: 19:10 General: see triage assessment. pf1 Vital Signs: 19:10 BP 164 / 101; Pulse 95; Resp 17; Temp 98.3; Pulse Ox 97% on R/A; Weight 7.71 kg; Height pf1 5 ft. 7 in. (170.18 cm); Pain 0/10; 21:00 BP 134 / 85; Pulse 97; Resp 20; Temp 98; Pulse Ox 99% on R/A; Pain 0/10; pf1 22:20 BP 140 / 87; Pulse 98; Resp 20; Temp 98.1; Pulse Ox 100% ; Pain 0/10; pf1 19:10 Body Mass Index 2.66 (7.71 kg, 170.18 cm) pf1 ED Course: 19:09 Patient arrived in ED. ko1 19:10 Arm band placed on right wrist. pf1 19:10 Patient has correct armband on for positive identification. Placed in gown. Bed in low pf1 position. Call light in reach. Side rails up X2. 19:14 Sanju Ontiveros MD is Attending Physician. [facility] 19:24 Aylin arteaga, RENA is Primary Nurse. pf1 19:41 Triage completed. pf1 19:53 Basic Metabolic Panel Sent. pf1 19:53 CBC with Diff Sent. pf1 19:53 LFT's Sent. pf1 19:53 Magnesium Sent. pf1 19:53 NT PRO-BNP Sent. pf1 19:53 PT-INR Sent. pf1 19:53 Troponin HS Sent. pf1 20:00 No provider procedures requiring assistance completed. pf1 20:20 XRAY Chest (1 view) In Process Unspecified. EDMS 21:29 Alex Heller DO is Referral Physician. anthony 22:20 IV discontinued, intact, bleeding controlled, No redness/swelling at site. Pressure pf1 dressing applied. Administered Medications: 20:10 Drug: NS 0.9% 500 ml Route: IV; Rate: bolus; Site: right antecubital; pf1 20:50 Follow up: IV Status: Completed infusion; IV Intake: 500ml pf1 21:02 Follow up: Response: No adverse reaction pf1 21:25 Drug: Rocephin (cefTRIAXone) 1 grams Route: IV; Rate: per protocol; Site: right pf1 antecubital; 21:30 Follow up: IV Status: Completed infusion; IV Intake: 10ml pf1 22:00 Follow up: Response: No adverse reaction pf1 21:25 Drug: Cipro (ciprofloxacin) 500 mg Route: PO; pf1 22:00 Follow up: Response: No adverse reaction pf1 Medication: 19:10 VIS not applicable for this client. pf1 Intake: 20:50 IV: 500ml; Total: 500ml. pf1 21:30 IV: 10ml; Total: 510ml. pf1 Outcome: 21:30 Discharge ordered by . anthony 22:27 Discharged to Patient was discharge to husbands room on fourth floor. pf1 22:27 Condition: improved 22:27 Discharge instructions given to patient, family, Instructed on discharge instructions, follow up and referral plans. medication usage, Demonstrated understanding of instructions, follow-up care, medications, Prescriptions given X 1, Notified son via phone per patient's permission to about patient discharge and prescriptions. Patient and family verbalized discharge instructions umderstanding. 22:36 Patient left the ED. pf1 Signatures: Dispatcher [employer] EDNE Sanju Ontiveros MD MD cha Oliver, Kathy, RN RN koAylin cavanaugh RN RN pf1 Corrections: (The following items were deleted from the chart) 21:04 21:03 Note [facility] stated submitted APS report on patient ACET[employer]LENE [employer] M[employer]. pf1 pf1 22:34 22:33 PMHx: COPD; pf1 pf1 22:33 PMHx: Hypertension; pf1 pf1 22:33 PMHx: Asthma; pf1 pf1
--- NOTE | 2022-02-19 21:31 | EDPHYS ---
Physician Documentation [facility] Name: Jloly Thayer Age: 81 yrs Sex: Female : 1940 Arrival Date: 02/19/2022 Time: 19:09 Bed 19 Private MD: ED Physician Sanju Ontiveros HPI: 02/19 21:25 This 81 yrs old Female presents to ER via EMS with complaints of weakness. anthony 21:25 anxious. Onset: The symptoms/episode began/occurred 2 day(s) ago. Severity of symptoms: anthony At their worst the symptoms were mild in the emergency department the symptoms are unchanged. The patient has experienced similar episodes in the past, multiple times. Historical: - Allergies: 19:10 valsartan; pf1 19:10 Unable to obtain; pf1 - PMHx: 22:33 Diabetes mellitus; pf1 - Immunization history:: Adult Immunizations not up to date, Client reports having NOT received the Covid vaccine. - Social history:: Smoking status: Patient denies any tobacco usage or history of. ROS: 21:26 Constitutional: Negative for fever, chills, and weight loss, Eyes: Negative for injury, anthony pain, redness, and discharge, ENT: Negative for injury, pain, and discharge, Neck: Negative for injury, pain, and swelling, Cardiovascular: Negative for chest pain, palpitations, and edema, Respiratory: Negative for shortness of breath, cough, wheezing, and pleuritic chest pain, Abdomen/GI: Negative for abdominal pain, nausea, vomiting, diarrhea, and constipation, Back: Negative for injury and pain, : Negative for injury, bleeding, discharge, and swelling, MS/Extremity: Negative for injury and deformity, Skin: Negative for injury, rash, and discoloration, Allergy/Immunology: Negative for hives, rash, and allergies, Endocrine: Negative for neck swelling, polydipsia, polyuria, polyphagia, and marked weight changes, Hematologic/Lymphatic: Negative for swollen nodes, abnormal bleeding, and unusual bruising. 21:26 Neuro: Positive for weakness. 21:26 Psych: Positive for anxiety. Exam: 21:26 Constitutional: This is a well developed, well nourished patient who is awake, alert, anthony and in no acute distress. Head/Face: Normocephalic, atraumatic. Eyes: Pupils equal round and reactive to light, extra-ocular motions intact. Lids and lashes normal. Conjunctiva and sclera are non-icteric and not injected. Cornea within normal limits. Periorbital areas with no swelling, redness, or edema. ENT: Nares patent. No nasal discharge, no septal abnormalities noted. Tympanic membranes are normal and external auditory canals are clear. Oropharynx with no redness, swelling, or masses, exudates, or evidence of obstruction, uvula midline. Mucous membranes moist. Neck: Trachea midline, no thyromegaly or masses palpated, and no cervical lymphadenopathy. Supple, full range of motion without nuchal rigidity, or vertebral point tenderness. No Meningismus. Chest/axilla: Normal chest wall appearance and motion. Nontender with no deformity. No lesions are appreciated. Cardiovascular: Regular rate and rhythm with a normal S1 and S2. No gallops, murmurs, or rubs. Normal PMI, no JVD. No pulse deficits. Respiratory: Lungs have equal breath sounds bilaterally, clear to auscultation and percussion. No rales, rhonchi or wheezes noted. No increased work of breathing, no retractions or nasal flaring. Abdomen/GI: Soft, non-tender, with normal bowel sounds. No distension or tympany. No guarding or rebound. No evidence of tenderness throughout. Back: No spinal tenderness. No costovertebral tenderness. Full range of motion. Skin: Warm, dry with normal turgor. Normal color with no rashes, no lesions, and no evidence of cellulitis. MS/ Extremity: Pulses equal, no cyanosis. Neurovascular intact. Full, normal range of motion. Neuro: Awake and alert, GCS 15, oriented to person, place, time, and situation. Cranial nerves II-XII grossly intact. Motor strength 5/5 in all extremities. Sensory grossly intact. Cerebellar exam normal. Normal gait. Psych: Awake, alert, with orientation to person, place and time. Behavior, mood, and affect are within normal limits. 21:26 ECG was reviewed by the Attending Physician. Vital Signs: 19:10 BP 164 / 101; Pulse 95; Resp 17; Temp 98.3; Pulse Ox 97% on R/A; Weight 7.71 kg; Height pf1 5 ft. 7 in. (170.18 cm); Pain 0/10; 21:00 BP 134 / 85; Pulse 97; Resp 20; Temp 98; Pulse Ox 99% on R/A; Pain 0/10; pf1 22:20 BP 140 / 87; Pulse 98; Resp 20; Temp 98.1; Pulse Ox 100% ; Pain 0/10; pf1 19:10 Body Mass Index 2.66 (7.71 kg, 170.18 cm) pf1 MDM: 19:14 Patient medically screened. anthony 21:28 Differential Diagnosis altered mental status. Data reviewed: vital signs, nurses notes, [facility] lab test result(s), EKG, radiologic studies, plain films. 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 Test interpretation: by ED physician or midlevel provider: ECG, plain radiologic studies. Counseling: I had a detailed discussion with the patient and/or guardian regarding: the historical points, exam findings, and any diagnostic results supporting the discharge/admit diagnosis, lab results, radiology results, the need for outpatient follow up, for definitive care, a family practitioner. 02/19 19:18 Order name: Basic Metabolic Panel; Complete Time: 21:20 [facility] 02/19 19:18 Order name: CBC with Diff; Complete Time: 21:20 [facility] 02/19 19:18 Order name: LFT's; Complete Time: 21:20 [facility] 02/19 19:18 Order name: Magnesium; Complete Time: 21:20 [facility] 02/19 19:18 Order name: NT PRO-BNP; Complete Time: 21:20 [facility] 02/19 19:18 Order name: PT-INR; Complete Time: 21:20 [facility] 02/19 19:18 Order name: Troponin HS; Complete Time: 21:20 [facility] 02/19 19:18 Order name: XRAY Chest (1 view); Complete Time: 21:20 [facility] 02/19 19:18 Order name: EKG; Complete Time: 19:20 [facility] 02/19 19:18 Order name: SARS RAPID; Complete Time: 21:20 [facility] 02/19 21:01 Order name: Urine Dipstick-Ancillary; Complete Time: 21:20 [facility] 02/19 19:18 Order name: Cardiac monitoring; Complete Time: 20:17 [facility] 02/19 19:18 Order name: EKG - Nurse/Tech; Complete Time: 20:17 [facility] 02/19 19:18 Order name: IV Saline Lock; Complete Time: 19:53 [facility] 02/19 19:18 Order name: Labs collected and sent; Complete Time: 19:53 [facility] 02/19 19:18 Order name: O2 Per Protocol; Complete Time: 19:53 [facility] 02/19 19:18 Order name: O2 Sat Monitoring; Complete Time: 19:53 [facility] 02/19 19:18 Order name: Urine Dipstick-Ancillary (obtain specimen); Complete Time: 21:01 [facility] EC: Rate is 95 beats/min. Rhythm is regular. QRS [place] is Normal. OK interval is normal. QRS anthony interval is normal. QT interval is normal. No Q waves. T waves are Normal. No ST changes noted. Clinical impression: NSR w/ Non-specific ST/T Changes and No evidence of ischemia. Interpreted by me. Reviewed by me. Administered Medications: 20:10 Drug: NS 0.9% 500 ml Route: IV; Rate: bolus; Site: right antecubital; pf1 20:50 Follow up: IV Status: Completed infusion; IV Intake: 500ml pf1 21:02 Follow up: Response: No adverse reaction pf1 21:25 Drug: Rocephin (cefTRIAXone) 1 grams Route: IV; Rate: per protocol; Site: right pf1 antecubital; 21:30 Follow up: IV Status: Completed infusion; IV Intake: 10ml pf1 22:00 Follow up: Response: No adverse reaction pf1 21:25 Drug: Cipro (ciprofloxacin) 500 mg Route: PO; pf1 22:00 Follow up: Response: No adverse reaction pf1 Disposition Summary: 02/19/22 21:30 Discharge Ordered Location: Home anthony Problem: new anthony Symptoms: have improved anthony Condition: Stable anthony Diagnosis - Unspecified kidney failure - chronic anthony - UTI/ Urinary tract infection, site not specified anthony - Weakness anthony Followup: anthony - With: Private Physician - When: 2 - 3 days - Reason: Recheck today's complaints, Continuance of care, Re-evaluation by your physician Followup: anthony - With: Alex Heller DO - When: 2 - 3 days - Reason: Recheck today's complaints, Continuance of care, Re-evaluation by your physician Discharge Instructions: - Discharge Summary Sheet anthony - Dysuria anthony - Urinary Tract Infection, Adult anthony - Weakness anthony - Fatigue anthony - Urinary Tract Infection, Adult, [id number]-[id number] anthony - Weakness, Jwbe-kn-Bufo anthony - Chronic Kidney Disease, Adult, [id number] anthony Forms: - Medication Reconciliation Form anthony - Thank You Letter anthony - Antibiotic Education anthony - Prescription Opioid Use anthony Prescriptions: - Cipro 250 mg Oral Tablet - take 1 tablet by ORAL route every 12 hours; 14 tablet; Refills: 0, Product anthony Selection Permitted Signatures: Dispatcher [employer] Snaju Eduardo MD MD cha finley, Pamala, RN RN pf1 Corrections: (The following items were deleted from the chart) 22:34 22:33 PMHx: COPD; pf1 pf1 22:34 22:33 PMHx: Hypertension; pf1 pf1 22:34 22:33 PMHx: Asthma; pf1 pf1
[2022-02-20 00:23] VITALS: BP 140/87; TEMP 98.1; O2SAT 100
--- NOTE | 2022-02-20 17:37 | EKG ---
Test Date: 2022-02-19 Test Time: 20:12:02 Grooving Lathe Tender: KARLA MEASUREMENT RESULTS: Intervals: Rate: 95 IL: 188 QRSD: 100 QT: 364 QTc: 457 [place]: P: 73 IL: 188 QRS: -18 T: 43 INTERPRETIVE STATEMENTS: Normal sinus rhythm Normal ECG Compared to ECG 10/16/2021 04:17:53 No significant changes Electronically Signed On 02-20-22 17:36:42 BRAND ADVISOR by Jim Sanchez
== END 2022-02-19 22:36 | disposition home or self-care (01) ==
LOC: ER 18:59
DX: N39.0 Urinary tract infection, site not specified (principal); E11.22 Type 2 diabetes mellitus with diabetic chronic kidney disease; N18.9 Chronic kidney disease, unspecified; F41.9 Anxiety disorder, unspecified; R05.9 Cough, unspecified; Z20.822 Contact with and (suspected) exposure to COVID-19
CPT/HCPCS: 96361; 93005; 85025; 80048; 36415; 83735; 85610; 80076; 81003; 84484; 83880; 71045; 96374; 99284; 87811; J7040

== ENCOUNTER 2022-03-12 23:43 | Emergency (ER) | payer OTHER ==
--- NOTE | 2022-03-13 01:11 | ER ---
Nurse's Notes [facility] Name: Jolly Thayer Age: 81 yrs Sex: Female : 1940 Arrival Date: 03/12/2022 Time: 23:44 Bed 21 Private MD: Diagnosis: Headache;Unspecified dementia with behavioral disturbance Presentation: 03/12 23:50 Chief complaint: Patient states: "I don't really know what happened." Patient was found tw5 under the emergency room breezeway in the car confused about where she was, how she got her or where she lived. It was discovered that her had drove them here earlier to check himself in as a patient. He stated " I left her in the car thinking I would only be here for a couple of hours.". Onset of symptoms is unknown. 23:50 Method Of Arrival: Wheelchair tw5 23:50 Acuity: TROY 3 tw5 03/13 00:18 Coronavirus screen: At this time, the client does not indicate any symptoms associated as6 with coronavirus-19. Ebola Screen: No symptoms or risks identified at this time. Initial Sepsis Screen: Does the patient meet any 2 criteria? No. Patient's initial sepsis screen is negative. Does the patient have a suspected source of infection? No. Patient's initial sepsis screen is negative. Risk Assessment: Do you want to hurt yourself or someone else? Patient reports no desire to harm self or others. Historical: - Allergies: 00:28 valsartan; as6 - PMHx: 00:28 diabetes mellitus; as6 - Immunization history:: Adult Immunizations unknown. - Social history:: Smoking status: unknown. Screenin:03 [facility] ED Fall Risk Assessment (Adult) History of falling in the last 3 months, as6 including since admission Yes- single mechanical fall (1 pt) Impaired Gait Yes (1 pt) Mobility Assist Device Used Yes (1 pt) Score/Fall Risk Level 3 or more points = High Risk. Abuse screen: Denies threats or abuse. Denies injuries from another. Nutritional screening: No deficits noted. Tuberculosis screening: No symptoms or risk factors identified. Assessment: 01:02 General: Appears in no apparent distress. Behavior is calm, cooperative. Pain: Denies as6 pain. Neuro: Level of Consciousness is awake, alert, obeys commands, confused, Oriented to person, place, situation. Neuro: Reports dizziness, weakness. Cardiovascular: Capillary refill < 3 seconds Patient's skin is warm and dry. Respiratory: Respiratory effort is even, unlabored. Vital Signs: 00:16 BP 138 / 92; Pulse 87; Resp 18 S; Pulse Ox 100% on R/A; Weight 79.38 kg; Height 5 ft. 6 as6 in. (167.64 cm); Pain 0/10; 01:04 Temp 97.9(O); as6 00:16 Body Mass Index 28.25 (79.38 kg, 167.64 cm) as6 ED Course: 03/12 23:44 Patient arrived in ED. es 23:55 Triage completed. tw5 23:57 Gianfranco Heller MD is Attending Physician. sp3 03/13 00:16 Sagar Ruffin, RN is Primary Nurse. as6 00:18 Arm band placed on. as6 00:35 Head Brain Wo Cont In Process Unspecified. EDMS 01:03 Bed in low position. Call light in reach. Adult w/ patient. as6 01:28 No provider procedures requiring assistance completed. Patient did not have IV access as6 during this emergency room visit. Administered Medications: No medications were administered Medication: 01:03 VIS not applicable for this client. as6 Outcome: 01:10 Discharge ordered by . sp3 01:29 Discharged to home via wheelchair, with family. as6 01:29 Condition: stable 01:29 Discharge instructions given to patient, Instructed on discharge instructions, follow up and referral plans. Demonstrated understanding of instructions, follow-up care. 01:29 Patient left the ED. as6 Signatures: Dispatcher [employer] Devika Ramos Setul, MD MD sp3 Carola Butler tw5 Sagar Ruffin, RN RN as6
--- NOTE | 2022-03-13 01:11 | EDPHYS ---
Physician Documentation [facility] Name: Jolly Thayer Age: 81 yrs Sex: Female : 1940 Arrival Date: 03/12/2022 Time: 23:44 Bed 21 Private MD: ED Physician Gianfranco Heller HPI: 03/13 00:28 This 81 yrs old Female presents to ER via Wheelchair with complaints of Dizziness. sp3 00:28 81-year-old female with history of diabetes found in the emergency room looking for her sp3 who is a patient here who is being admitted. Patient's states age he brought her to the hospital with her and was supposed to in the car thinking that he would be discharged after "a few hours". He went to the ED herself confused and disoriented and was escorted to her 's room and evaluated there. She denies any direct trauma, focal deficit, change in speech, inability to walk, or any other symptoms. She simply states that she "does not remember" how she got here and what happened to her prior to coming into the emergency department. Known prior dementia history as both patient and are poor historians.. Historical: - Allergies: 00:28 valsartan; as6 - PMHx: 00:28 diabetes mellitus; as6 - Immunization history:: Adult Immunizations unknown. - Social history:: Smoking status: unknown. ROS: 00:30 Constitutional: Negative for fever, chills, and weight loss, Eyes: Negative for injury, sp3 pain, redness, and discharge, ENT: Negative for injury, pain, and discharge, Neck: Negative for injury, pain, and swelling, Cardiovascular: Negative for chest pain, palpitations, and edema, Respiratory: Negative for shortness of breath, cough, wheezing, and pleuritic chest pain, Abdomen/GI: Negative for abdominal pain, nausea, vomiting, diarrhea, and constipation, Back: Negative for injury and pain, Skin: Negative for injury, rash, and discoloration, Psych: Negative for depression, anxiety, suicide ideation, homicidal ideation, and hallucinations, Allergy/Immunology: Negative for hives, rash, and allergies, Endocrine: Negative for neck swelling, polydipsia, polyuria, polyphagia, and marked weight changes, Hematologic/Lymphatic: Negative for swollen nodes, abnormal bleeding, and unusual bruising. 00:30 All other systems are negative. Exam: 00:30 Constitutional: This is a well developed, well nourished patient who is awake, alert, sp3 and in no acute distress. Head/Face: Normocephalic, atraumatic. Eyes: Pupils equal round and reactive to light, extra-ocular motions intact. Lids and lashes normal. Conjunctiva and sclera are non-icteric and not injected. Cornea within normal limits. Periorbital areas with no swelling, redness, or edema. Neck: Trachea midline, no thyromegaly or masses palpated, and no cervical lymphadenopathy. Supple, full range of motion without nuchal rigidity, or vertebral point tenderness. No Meningismus. Chest/axilla: Normal chest wall appearance and motion. Nontender with no deformity. No lesions are appreciated. Cardiovascular: Regular rate and rhythm with a normal S1 and S2. No gallops, murmurs, or rubs. Normal PMI, no JVD. No pulse deficits. Respiratory: Lungs have equal breath sounds bilaterally, clear to auscultation and percussion. No rales, rhonchi or wheezes noted. No increased work of breathing, no retractions or nasal flaring. Abdomen/GI: Soft, non-tender, with normal bowel sounds. No distension or tympany. No guarding or rebound. No evidence of tenderness throughout. MS/ Extremity: Pulses equal, no cyanosis. Neurovascular intact. Full, normal range of motion. Neuro: Awake and alert, GCS 15, oriented to person, place, time, and situation. Cranial nerves II-XII grossly intact. Motor strength 5/5 in all extremities. Sensory grossly intact. Cerebellar exam normal. Normal gait. Psych: Awake, alert, with orientation to person, place and time. Behavior, mood, and affect are within normal limits. 00:30 Neuro: Neurological exam is normal other than the brief memory loss of how she got here. No focal deficits noted. Cranial nerves II through XII are intact. Patient is ambulatory. Pain and temperature and proprioception pathways are also normal. Speech is normal.. Vital Signs: 00:16 BP 138 / 92; Pulse 87; Resp 18 S; Pulse Ox 100% on R/A; Weight 79.38 kg; Height 5 ft. 6 as6 in. (167.64 cm); Pain 0/10; 01:04 Temp 97.9(O); as6 00:16 Body Mass Index 28.25 (79.38 kg, 167.64 cm) as6 MDM: 00:00 Patient medically screened. sp3 00:31 Data reviewed: vital signs, nurses notes. ED course: 81-year-old female with diabetes sp3 with brief memory loss. It is unknown whether she has baseline dementia and where she is at her baseline. Patient does not drive and will not be able to go home if discharged. Will obtain CT scan of the head remain conservative with her work-up. No blood work is indicated at this time. She appears cognizant and in no acute distress and has no pain at this time. Clinically have ruled out TIA/CVA, sepsis, CAD, or any other critical findings. If CT scan is normal we will discharge her to stay as her 's guest here in the hospital.. 03/12 23:57 Order name: CT Head Brain wo Cont sp3 03/13 00:01 Order name: Head Brain Wo Cont EDMS Administered Medications: No medications were administered Disposition Summary: 03/13/22 01:10 Discharge Ordered Location: Home sp3 Condition: Stable sp3 Diagnosis - Headache sp3 - Unspecified dementia with behavioral disturbance sp3 Followup: sp3 - With: Private Physician - When: Upon discharge from the Emergency Department - Reason: Continuance of care Discharge Instructions: - Discharge Summary Sheet sp3 - General Headache Without Cause sp3 Forms: - Medication Reconciliation Form sp3 - Thank You Letter sp3 - Antibiotic Education sp3 - Prescription Opioid Use sp3 Signatures: Dispatcher [employer] EDMS Gianfranco Heller MD MD sp3 Sagar Ruffin, RN RN as6
[2022-03-13 01:53] VITALS: BP 138/92; O2SAT 100
[2022-03-13 01:54] VITALS: TEMP 97.9
--- NOTE | 2022-03-13 17:01 | RAD REPORT ---
EXAM DESCRIPTION: CT - Head Brain Wo Cont - 03/13/2022 1:22 am CLINICAL HISTORY: The patient is 81 years old and is Female; headache memory loss TECHNIQUE: Axial computed tomography images of the head/brain without intravenous contrast. Sagitt al and coronal reformatted images were created and reviewed. This CT exam was performed using one o r more of the following dose reduction techniques: automated exposure control, adjustment of the mA and/or kV according to patient size, and/or use of iterative reconstruction technique. COMPARISON: No relevant prior studies available. FINDINGS: Brain: Mild nonspecific white matter changes likely related to chronic microvascular isc hemic disease. Mild cerebral atrophy. No hemorrhage. Ventricles: Unremarkable. No ventriculomegaly. Bones/joints: Unremarkable. No acute fracture. Soft tissues: Unremarkable. Sinuses: Unremarkable as visualized. Mastoid air cells: Unremarkable as visualized. No mastoid effusion. IMPRESSION: No acute intracranial abnormality. Electronically signed by: Pop Kelly MD 03/13/2022 1:01 AM PIPE AND TEST SUPERVISOR Due to temporary technical issues with the PACS/Fluency reporting system, reports are being signed by the in house radiologists without review as a courtesy to insure prompt reporting. The interpreting radiologist is fully responsible for the content of the report.
== END 2022-03-13 01:29 | disposition home or self-care (01) ==
LOC: ER 23:43
DX: R51.9 Headache, unspecified (principal); F03.90 Unspecified dementia, unspecified severity, without behavioral disturbance, psychotic disturbance, mood disturbance, and anxiety; E11.9 Type 2 diabetes mellitus without complications; Z88.8 Allergy status to other drugs, medicaments and biological substances
CPT/HCPCS: 70450; 99283

== ENCOUNTER 2022-07-01 13:31 | Inpatient (IN) | payer OTHER ==
--- NOTE | 2022-07-01 14:17 | RAD REPORT ---
EXAM DESCRIPTION: CT - Head C Spine Cap Wo Con - 07/01/2022 1:57 pm CLINICAL HISTORY: Trauma, head and neck injury. Chest, abdomen and pelvis pain. DIZZINESS COMPARISON: Abdomen Pelvis W Contrast dated 06/22/2022 TECHNIQUE: CT head without contrast. CT cervical spine without contrast with coronal and sagittal reformatted images. CT chest, abdomen and pelvis with coronal and sagittal reformatted images of the spine. All CT scans are performed using dose optimization technique as appropriate and may include automated exposure control or mA/KV adjustment according to patient size. FINDINGS: CT HEAD WITHOUT CONTRAST: No intracranial hemorrhage, hydrocephalus or extra-axial fluid collection. No acute large vascular te rritory infarct. Chronic small vessel ischemic changes. Cerebral atrophy. The paranasal sinuses and mastoids are clear. The calvarium is intact. CT CERVICAL SPINE WITHOUT CONTRAST: No fracture or subluxation. The prevertebral soft tissues are normal in thickness.Carotid artery calcifications. CT CHEST, ABDOMEN, PELVIS: Thorax: Chest Wall: No abnormal mass Lungs: Mild dependent atelectasis. Pleura: No effusions or pneumothorax. Angelica/Mediastinum: No lymphadenopathy. Aorta/Pulmonary Arteries: Unremarkable Heart: Cardiomegaly. Sternotomy. Dense mitral annular calcifications. Aortic valve repair. Abdomen/Pelvis: Liver: No acute abnormality or suspicious lesions. Biliary: No biliary ductal dilatation. Stomach: No significant focal abnormality. Duodenum: No significant focal abnormality. Pancreas: No significant abnormality. Spleen: No significant abnormality. Adrenal: No suspicious lesions. Kidney/ureter: No hydronephrosis. No renal calculi. Retroperitoneum: No retroperitoneal adenopathy. Vascular: 4 cm abdominal aortic aneurysm. Twelve month follow-up imaging and vascular consultation wa s recommended on the CT from 06/22/2022 . Bowel: No significant focal abnormality. Moderate formed stool in the rectum . Diverticulosis without diverticulitis. No appendicitis. Peritoneum: No ascites or free air. Bladder: Grossly unremarkable. Reproductive: No adnexal masses. Bones: Similar alignment of the right obturator ring fracture. Nondisplaced right sacral fracture is unchanged. Slight T8 compression deformity is age indeterminate but probably subacute or chronic. Other: n/a IMPRESSION: 1. Similar alignment of the known osseous fractures involving the right obturator ring a nd right sacral ala. No new fractures identified. 2. No acute findings within the chest. 3. No acute intracranial abnormality. 4. No acute fracture or traumatic malalignment cervical spine .
--- NOTE | 2022-07-01 14:26 | RAD REPORT ---
EXAM DESCRIPTION: RAD - Chest Single View - 07/01/2022 2:09 pm CLINICAL HISTORY: COUGH COMPARISON: Chest Single View dated 02/19/2022; Chest Single View dated 10/16/2021; Chest Single View d ated 11/30/2018; Chest Pa And Lat (2 Views) dated 08/09/2018 FINDINGS: Lines: None. Lungs: No evidence of edema or pneumonia. Prominent retrocardiac opacities are similar to prior and l ikely chronic Pleural: No significant pleural effusions or pneumothorax. Cardiac: Cardiomegaly. Mediastinum: Within normal limits. Bones: No acute fractures. Sternotomy. Other: None IMPRESSION: No acute cardiopulmonary disease.
[2022-07-01 15:10] LABS: Absolute Lymphocytes (CBC) 0.3 K/uL (0.7-4.9); Hematocrit 35.9 % (36.0-45.0); Lymphocytes % 2.5 % (15.3-44.8); MCV 94.2 fL (80-100); MPV 7.5 fL (7.6-11.3); RBC Red Blood Cell Count 3.81 M/uL (3.86-4.86)
[2022-07-01] MEDS ORDERED: NA CHLORIDE 0.9% 50 ML ONE (15:11)
[2022-07-01] MEDS ORDERED: CEFTRIAXONE 1000 MG/VIAL ONE (15:11)
[2022-07-01] MEDS ORDERED: NA CHLORIDE 0.9% 1,000 ML ONE ×2 (15:11→19:41)
[2022-07-01 15:14] LABS: Protime INR 1.15
[2022-07-01 15:31] LABS: Albumin 3.6 g/dL (3.4-5.0); Bilirubin Direct 0.6 mg/dL (0-0.2); Bilirubin Total 1.4 mg/dL (0.2-1.0); Magnesium 2.4 mg/dL (1.6-2.4); Potassium 4.5 mEq/L (3.5-5.1); Protein, Total 8.4 g/dL (6.4-8.2); Troponin High Sensitivity 33.3 pg/mL (<58.9)
[2022-07-01] MEDS ORDERED: NA CHLORIDE 0.9% 500 ML ONE ×2 (15:31→19:41)
--- NOTE | 2022-07-01 17:01 | EDPHYS ---
Physician Documentation [facility] Name: Jolly Thayer Age: 81 yrs Sex: Female : 1940 Arrival Date: 07/01/2022 Time: 13:31 Bed 18 Private MD: ED Physician Sanju Ontiveros HPI: 07/01 16:54 This 81 yrs old Female presents to ER via EMS with complaints of Blood anthony Pressure Problem. 16:54 weakness. Onset: The symptoms/episode began/occurred 2 day(s) ago. Severity of anthony symptoms: At their worst the symptoms were mild in the emergency department the symptoms are unchanged. The patient has experienced similar episodes in the past, several times. Historical: - Allergies: 13:37 Losartan; bp 13:37 valsartan; bp - PMHx: 13:37 cardiac murmur; Alzheimer's disease; bp - Immunization history:: Adult Immunizations up to date. - Social history:: Smoking status: Patient denies any tobacco usage or history of. ROS: 16:57 Constitutional: Negative for fever, chills, and weight loss, Eyes: Negative for injury, anthony pain, redness, and discharge, ENT: Negative for injury, pain, and discharge, Neck: Negative for injury, pain, and swelling, Cardiovascular: Negative for chest pain, palpitations, and edema, Respiratory: Negative for shortness of breath, cough, wheezing, and pleuritic chest pain, Back: Negative for injury and pain, : Negative for injury, bleeding, discharge, and swelling, MS/Extremity: Negative for injury and deformity, Skin: Negative for injury, rash, and discoloration, Psych: Negative for depression, anxiety, suicide ideation, homicidal ideation, and hallucinations, Allergy/Immunology: Negative for hives, rash, and allergies, Endocrine: Negative for neck swelling, polydipsia, polyuria, polyphagia, and marked weight changes, Hematologic/Lymphatic: Negative for swollen nodes, abnormal bleeding, and unusual bruising. 16:57 Abdomen/GI: Positive for nausea and vomiting. 16:57 Neuro: Positive for weakness. Exam: 16:57 Constitutional: This is a well developed, well nourished patient who is awake, alert, anthony and in no acute distress. Head/Face: Normocephalic, atraumatic. Eyes: Pupils equal round and reactive to light, extra-ocular motions intact. Lids and lashes normal. Conjunctiva and sclera are non-icteric and not injected. Cornea within normal limits. Periorbital areas with no swelling, redness, or edema. ENT: Nares patent. No nasal discharge, no septal abnormalities noted. Tympanic membranes are normal and external auditory canals are clear. Oropharynx with no redness, swelling, or masses, exudates, or evidence of obstruction, uvula midline. Mucous membranes moist. Neck: Trachea midline, no thyromegaly or masses palpated, and no cervical lymphadenopathy. Supple, full range of motion without nuchal rigidity, or vertebral point tenderness. No Meningismus. Chest/axilla: Normal chest wall appearance and motion. Nontender with no deformity. No lesions are appreciated. Cardiovascular: Regular rate and rhythm with a normal S1 and S2. No gallops, murmurs, or rubs. Normal PMI, no JVD. No pulse deficits. Respiratory: Lungs have equal breath sounds bilaterally, clear to auscultation and percussion. No rales, rhonchi or wheezes noted. No increased work of breathing, no retractions or nasal flaring. Abdomen/GI: Soft, non-tender, with normal bowel sounds. No distension or tympany. No guarding or rebound. No evidence of tenderness throughout. Back: No spinal tenderness. No costovertebral tenderness. Full range of motion. Female : Normal external genitalia. MS/ Extremity: Pulses equal, no cyanosis. Neurovascular intact. Full, normal range of motion. Neuro: Awake and alert, GCS 15, oriented to person, place, time, and situation. Cranial nerves II-XII grossly intact. Motor strength 5/5 in all extremities. Sensory grossly intact. Cerebellar exam normal. Normal gait. Psych: Awake, alert, with orientation to person, place and time. Behavior, mood, and affect are within normal limits. 16:57 Skin: Appearance: Color: pale. 17:10 ECG was reviewed by the Attending Physician. [facility] 19:57 ECG was reviewed by the Attending Physician. [facility] Vital Signs: 13:36 BP 183 / 98; Pulse 100; Resp 18; Temp 98; Pulse Ox 99% on 2 lpm NC; bp 14:21 BP 192 / 80; Pulse 100; Resp 16; Pulse Ox 100% ; db 15:00 BP 178 / 98; Pulse 97; Resp 16; Pulse Ox 100% ; db 16:00 BP 168 / 94; Pulse 109; Resp 18; Pulse Ox 99% on R/A; db 17:00 BP 185 / 96; Pulse 109; Resp 18; Pulse Ox 99% on R/A; db 19:23 BP 191 / 98; Pulse 105; Resp 16 S; Pulse Ox 99% on R/A; ha1 MDM: 13:38 Patient medically screened. [facility] 16:58 Differential Diagnosis altered mental status, sepsis, flu. Data reviewed: vital signs, [facility] nurses notes, lab test result(s), EKG, radiologic studies, CT scan, plain films. Consideration of Admission/Observation Patient was admitted/placed on observation. Escalation of care including admission/observation considered. I considered the following discharge prescriptions or medication management in the emergency department Medications were administered in the Emergency Department. See MAR. Independent interpretation of the following test(s) in the Emergency Department EKG: See my EKG interpretation above X-Ray: My interpretation is . Test considered but Not performed: MRI: no brain mri. Care significantly affected by the following chronic conditions: Hypertension. Counseling: I had a detailed discussion with the patient and/or guardian regarding: the historical points, exam findings, and any diagnostic results supporting the discharge/admit diagnosis, the presence of at least one elevated blood pressure reading (>120/80) during this emergency department visit, lab results, the need for further work-up and treatment in the hospital. 07/01 13:39 Order name: Basic Metabolic Panel; Complete Time: 16:08 [facility] 07/01 13:39 Order name: CBC with Diff; Complete Time: 16:08 [facility] 07/01 13:39 Order name: LFT's; Complete Time: 16:08 07/01 13:39 Order name: Magnesium; Complete Time: 16:08 anthony 07/01 13:39 Order name: NT PRO-BNP; Complete Time: 16:08 anthony 07/01 13:39 Order name: PT-INR; Complete Time: 16:08 07/01 13:39 Order name: Troponin HS; Complete Time: 16:08 07/01 13:39 Order name: Lipase; Complete Time: 16:08 [facility] 07/01 13:39 Order name: Urinalysis W/Microscopic; Complete Time: 16:41 [facility] 07/01 13:49 Order name: Blood Culture Adult (2) [facility] 07/01 13:49 Order name: Lactate w/ 2H reflex if indic.; Complete Time: 16:08 [facility] 07/01 17:21 Order name: Urinalysis W/Microscopic db 07/01 18:36 Order name: Urinalysis W/Microscopic; Complete Time: 19:20 [facility] 07/01 19:34 Order name: Troponin High Sensitivity; Complete Time: 19:54 [facility] 07/02 08:56 Order name: CBC with Automated Diff [facility] 07/02 09:26 Order name: Basic Metabolic Panel [facility] 07/02 11:55 Order name: Blood Culture [facility] 07/01 13:39 Order name: XRAY Chest (1 view); Complete Time: 16:08 [facility] 07/01 13:39 Order name: CT Traumagram (Head C Spine CAP wo con); Complete Time: 16:08 [facility] 07/02 08:26 Order name: RAD [facility] 07/01 13:39 Order name: EKG; Complete Time: 13:40 [facility] 07/01 13:39 Order name: Cardiac monitoring; Complete Time: 15:11 [facility] 07/01 13:39 Order name: EKG - Nurse/Tech; Complete Time: 15:12 [facility] 07/01 13:39 Order name: IV Saline Lock; Complete Time: 15:12 [facility] 07/01 13:39 Order name: Labs collected and sent; Complete Time: 15:11 [facility] 07/01 13:39 Order name: O2 Per Protocol; Complete Time: 15:11 [facility] 07/01 13:39 Order name: O2 Sat Monitoring; Complete Time: 15:11 [facility] EC:10 Rate is 99 beats/min. Rhythm is regular. QRS [place] is Normal. FL interval is normal. QRS anthony interval is normal. No Q waves. T waves are Normal. No ST changes noted. Clinical impression: NSR w/ Non-specific ST/T Changes, LVH, and No evidence of ischemia. Interpreted by me. Reviewed by me. 19:57 Rate is 110 beats/min. Rhythm is regular. QRS [place] is Normal. QRS interval is normal. anthony QT interval is normal. No Q waves. T waves are Normal. No ST changes noted. Clinical impression: LVH, Sinus tachycardia, and No evidence of ischemia. Interpreted by me. Reviewed by me. Administered Medications: 15:15 Drug: NS 0.9% IV 1000 ml Route: IV; Rate: 125 ml/hr; Site: right antecubital; db 15:15 Drug: NS 0.9% IV 500 ml Route: IV; Rate: bolus; Site: right antecubital; db 15:15 Drug: Rocephin IV 1 grams Route: IV; Rate: per protocol; Site: right antecubital; db 15:39 Follow up: Response: No adverse reaction; IV Status: Completed infusion; IV Intake: 50mldb 20:04 Not Given (Physician Discretion): Metoprolol PO 50 mg PO once ha1 20:10 Drug: Metoprolol IVP 5 mg Route: IVP; Site: right antecubital; ha1 Disposition Summary: 07/01/22 17:00 Hospitalization Ordered Hospitalization Status: Inpatient Admission anthony Provider: Shahid Canas cha Condition: Fair anthony Problem: new anthony Symptoms: have improved anthony Bed/Room Type: Standard anthony Location: Telemetry/MedSurg (Inpatient)(07/02/22 14:54) em1 Room Assignment: 229(07/02/22 14:54) em1 Diagnosis - Weakness anthony - UTI/ Urinary tract infection, site not specified anthony - Repeated falls anthony - Fracture of other parts of pelvis anthony - Cardiomegaly anthony - Unspecified kidney failure anthony - Elevated white blood cell count anthony - Essential (primary) hypertension anthony Forms: - Medication Reconciliation Form anthony - SBAR form anthony Signatures: Dispatcher [employer] EDSanju Don MD MD cha Martinez, Eric em1 Juan Ross ds4 Lolis Wilkins RN RN cg Peltier, Brian, RN RN bp Ayala, Heidy, RN RN [place] Cheli Stafford RN RN db Corrections: (The following items were deleted from the chart) 20:43 17:00 anthony cg 20:57 17:00 Telemetry/MedSurg (Inpatient) anthony ds4 20:57 20:43 405 cg ds4 07/02 14:54 04 20:57 [facility] ER HOLD ds4 em1 07/02 14:54 07/01 20:57 ERHOLD- ds4 em1
--- NOTE | 2022-07-01 17:01 | ER ---
Nurse's Notes [facility] Name: Jolly Thayer Age: 81 yrs Sex: Female : 1940 Arrival Date: 07/01/2022 Time: 13:31 Bed 18 Private MD: Diagnosis: Weakness;UTI/ Urinary tract infection, site not specified;Repeated falls;Fracture of other parts of pelvis;Cardiomegaly;Unspecified kidney failure;Elevated white blood cell count;Essential (primary) hypertension Presentation: 07/01 13:36 Chief complaint: EMS states: SENT FROM [place] FOR HTN. Coronavirus screen: At this bp time, the client does not indicate any symptoms associated with coronavirus-19. Ebola Screen: No symptoms or risks identified at this time. Initial Sepsis Screen: Does the patient meet any 2 criteria? HR > 90 bpm. No. Patient's initial sepsis screen is negative. Does the patient have a suspected source of infection? No. Patient's initial sepsis screen is negative. Risk Assessment: Do you want to hurt yourself or someone else? Patient reports no desire to harm self or others. Onset of symptoms was July 01, 2022. Care prior to arrival: Glucose check: 204. 13:36 Method Of Arrival: EMS: [facility] bp 13:36 Acuity: TROY 3 bp Triage Assessment: 13:37 General: Appears in no apparent distress. comfortable, Behavior is calm, cooperative, bp appropriate for age. Pain: Denies pain. EENT: No deficits noted. Neuro: Level of Consciousness is awake, alert, obeys commands. Cardiovascular: Rhythm is sinus rhythm. Respiratory: No deficits noted. GI: No signs and/or symptoms were reported involving the gastrointestinal system. : No signs and/or symptoms were reported regarding the genitourinary system. Derm: No deficits noted. Musculoskeletal: No deficits noted. Historical: - Allergies: 13:37 Losartan; bp 13:37 valsartan; bp - PMHx: 13:37 cardiac murmur; Alzheimer's disease; bp - Immunization history:: Adult Immunizations up to date. - Social history:: Smoking status: Patient denies any tobacco usage or history of. Screenin:39 [facility] ED Fall Risk Assessment (Adult) History of falling in the last 3 months, bp including since admission Yes- fall prone (multiple falls) (3 pts) Confusion or Disorientation No (0 pts) Intoxicated or Sedated No (0 pts) Impaired Gait Yes (1 pt) Mobility Assist Device Used No (0 pt) Altered Elimination No (0 pt) Score/Fall Risk Level 3 or more points = High Risk Oriented to surroundings, Maintained a safe environment, Educated pt \T\ family on fall prevention, incl call for assistance when getting out of bed, Assessed \T\ reinforced patient's understanding of fall precautions, Hourly rounding (assess needs \T\ fall precautionary measures) done, Used ambulatory aids as needed (educated on \T\ assisted with). Abuse screen: Denies threats or abuse. Denies injuries from another. Nutritional screening: No deficits noted. Tuberculosis screening: No symptoms or risk factors identified. Assessment: 13:39 General: SEE TRIAGE NOTE. bp 13:55 Reassessment: patient is in CT. db 14:11 Reassessment: patient returned to room from CT and xray. db 15:39 Reassessment: Patient appears in no apparent distress at this time. Patient and/or db family updated on plan of care and expected duration. Pain level reassessed. Patient is alert, oriented x 3, equal unlabored respirations, skin warm/dry/pink. Neuro: Level of Consciousness is awake, alert, obeys commands, Oriented to person, place, time, situation, Moves all extremities. Speech is normal. 17:29 Reassessment: Patient appears in no apparent distress at this time. Patient and/or db family updated on plan of care and expected duration. Pain level reassessed. Patient is alert, oriented x 3, equal unlabored respirations, skin warm/dry/pink. 18:00 Reassessment: Patient appears in no apparent distress at this time. Patient and/or db family updated on plan of care and expected duration. Pain level reassessed. Patient is alert, oriented x 3, equal unlabored respirations, skin warm/dry/pink. patient incontinent of stool and urine. patient brief changed. Noted brown soft stool. patient states did not realize that she had a bowel movement. Vital Signs: 13:36 BP 183 / 98; Pulse 100; Resp 18; Temp 98; Pulse Ox 99% on 2 lpm NC; bp 14:21 BP 192 / 80; Pulse 100; Resp 16; Pulse Ox 100% ; db 15:00 BP 178 / 98; Pulse 97; Resp 16; Pulse Ox 100% ; db 16:00 BP 168 / 94; Pulse 109; Resp 18; Pulse Ox 99% on R/A; db 17:00 BP 185 / 96; Pulse 109; Resp 18; Pulse Ox 99% on R/A; db 19:23 BP 191 / 98; Pulse 105; Resp 16 S; Pulse Ox 99% on R/A; ha1 Vitals: 14:21 Cardiac Rhythm Assessment. db ED Course: 13:36 Patient arrived in ED. bp 13:37 Triage completed. bp 13:37 Arm band placed on. bp 13:38 Sanju Ontiveros MD is Attending Physician. anthony 13:39 Patient has correct armband on for positive identification. Bed in low position. Call bp light in reach. Side rails up X2. 13:52 Cheli Stafford, RENA is Primary Nurse. db 13:59 CT Traumagram (Head C Spine CAP wo con) In Process Unspecified. EDMS 14:09 XRAY Chest (1 view) In Process Unspecified. EDMS 15:10 Inserted saline lock: 20 gauge in right antecubital area, using aseptic technique. db Blood collected. 16:59 Shahid Canas MD is Hospitalizing Provider. [facility] 18:00 Gaffney cath inserted, using sterile technique, 16 Fr., by generator assembler, balloon inflated, to db gravity drainage, urine specimen collected. 04 16:42 No provider procedures requiring assistance completed. Patient admitted, IV remains in eh3 place. Administered Medications: 07/01 15:15 Drug: NS 0.9% IV 1000 ml Route: IV; Rate: 125 ml/hr; Site: right antecubital; db 15:15 Drug: NS 0.9% IV 500 ml Route: IV; Rate: bolus; Site: right antecubital; db 15:15 Drug: Rocephin IV 1 grams Route: IV; Rate: per protocol; Site: right antecubital; db 15:39 Follow up: Response: No adverse reaction; IV Status: Completed infusion; IV Intake: 50mldb 20:04 Not Given (Physician Discretion): Metoprolol PO 50 mg PO once ha1 20:10 Drug: Metoprolol IVP 5 mg Route: IVP; Site: right antecubital; ha1 Medication: 13:39 VIS not applicable for this client. bp Intake: 15:39 IV: 50ml; Total: 50ml. db Outcome: 17:00 Decision to Hospitalize by Provider. anthony 07/02 16:41 Admitted to Med/surg accompanied by tech, via stretcher, room 229, Report called to [facility] Deshaun Condition: stable Instructed on the need for admit. 16:42 Patient left the ED. [facility] Signatures: Dispatcher [employer] EDWY Sanju Ontiveros MD MD cha Peltier, Brian, RN RN bp Tamica Reddy RN RN [facility] Rosi Frances, RENA RN 1 Cheli Stafford RN RN db Corrections: (The following items were deleted from the chart) 07/01 14:11 13:40 Reassessment: patient is in CT db db
[2022-07-01 18:36] LABS: Specific Gravity 1.018 (1.005-1.030); Urine Bacteria None Seen /HPF (<20); Urine Bilirubin NEGATIVE (Negative); Urine Blood Trace (Negative); Urine Clarity Clear (Clear); Urine Color Yellow (Yellow); Urine Glucose NEGATIVE (Negative); Urine Mucus Slight /HPF (None Seen); Urine Protein 1+ (Negative); Urine RBC <5 /HPF (None Seen); Urine Urobilinogen Normal (Normal)
[2022-07-01] MEDS ORDERED: ONDANSETRON 4 MG/2 ML VIAL IV PRN (18:39)
[2022-07-01] MEDS ORDERED: NA CHLORIDE 0.9% 500 ML IV ONE (19:30)
[2022-07-01] MEDS: carvediloL 3.125 MG TAB PO SCH (19:40)
[2022-07-01] MEDS: NA CHLORIDE 0.9% 1,000 ML IV SCH (19:40)
[2022-07-01] MEDS ORDERED: FAMOTIDINE 20 MG/2 ML VIAL IV ONE (19:41)
[2022-07-01] MEDS ORDERED: carvediloL 6.25 MG TAB ONE (19:41)
[2022-07-01] MEDS ORDERED: METOPROLOL TARTRATE 5 MG/5 ML INJ IV ONE (20:25)
[2022-07-01] MEDS: FAMOTIDINE 20 MG/2 ML VIAL IV SCH (20:58)
[2022-07-02 01:01] VITALS: BMI 24.2
[2022-07-02] MEDS: NA CHLORIDE 0.9% 1,000 ML IV SCH ×2 (04:39→14:39)
[2022-07-02] MEDS ORDERED: carvediloL 6.25 MG TAB ONE (08:03)
[2022-07-02] MEDS ORDERED: FAMOTIDINE 20 MG/2 ML VIAL IV ONE (08:03)
[2022-07-02] MEDS ORDERED: ASPIRIN EC 81 MG TAB PO ONE (08:03)
[2022-07-02] MEDS ORDERED: CEFTRIAXONE 1000 MG/VIAL ONE (08:03)
--- NOTE | 2022-07-02 08:25 | RAD REPORT ---
EXAM DESCRIPTION: RAD - Chest Single View - 07/02/2022 5:13 am CLINICAL HISTORY: Chest Pain Chest pain. COMPARISON: Chest Single View dated 07/01/2022; Chest Single View dated 02/19/2022; Chest Single View dated 10/16/2021; Chest Single View dated 11/30/2018 FINDINGS: Portable technique limits examination quality. Moderate pulmonary edema. The heart is moderately enlarged. Sternotomy wires. IMPRESSION: Moderate volume overload versus CHF.
--- NOTE | 2022-07-02 08:28 | EKG ---
Test Date: 2022-07-01 Test Time: 19:43:10 [employer] Representative: BLAYNE MEASUREMENT RESULTS: Intervals: Rate: 110 UT: 176 QRSD: 100 QT: 328 QTc: 443 [place]: P: 61 UT: 176 QRS: -3 T: 116 INTERPRETIVE STATEMENTS: Sinus tachycardia Minimal voltage criteria for LVH, may be normal variant Nonspecific ST and T wave abnormality Abnormal ECG Compared to ECG 07/01/2022 14:33:36 Left ventricular hypertrophy now present Sinus rhythm no longer present ST (T wave) deviation still present Electronically Signed On 07-02-22 08:27:21 CDT by Amaury Rubalcava
--- NOTE | 2022-07-02 08:29 | EKG ---
Test Date: 2022-07-01 Test Time: 14:33:36 Ambulatory Service Representative: BLAYNE MEASUREMENT RESULTS: Intervals: Rate: 98 FL: 188 QRSD: 98 QT: 352 QTc: 449 [place]: P: 64 FL: 188 QRS: -5 T: 113 INTERPRETIVE STATEMENTS: Normal sinus rhythm Nonspecific ST and T wave abnormality Abnormal ECG Compared to ECG 06/22/2022 23:09:35 ST (T wave) deviation now present Ventricular premature complex(es) no longer present Myocardial infarct finding no longer present Electronically Signed On 07-02-22 08:27:31 CDT by Amaury Rubalcava
--- NOTE | 2022-07-02 08:29 | EKG ---
Test Date: 2022-07-01 Test Time: 14:34:05 Director Of Strategic Communications: BLAYNE MEASUREMENT RESULTS: Intervals: Rate: 99 IL: 168 QRSD: 98 QT: 350 QTc: 449 [place]: P: 64 IL: 168 QRS: -4 T: 113 INTERPRETIVE STATEMENTS: Sinus rhythm with marked sinus arrhythmia Nonspecific ST and T wave abnormality Abnormal ECG Compared to ECG 07/01/2022 14:33:36 No significant changes Electronically Signed On 07-02-22 08:27:30 CDT by Amaury Rubalcava
[2022-07-02] MEDS: CEFTRIAXONE 1,000 MG in NA CHLORIDE 0.9% 50 ML IVPB SCH (08:37)
[2022-07-02] MEDS: carvediloL 3.125 MG TAB PO SCH ×2 (08:37→17:38)
[2022-07-02] MEDS: FAMOTIDINE 20 MG/2 ML VIAL IV SCH ×2 (08:37→20:03)
[2022-07-02] MEDS: ASPIRIN EC 81 MG TAB PO SCH (08:37)
[2022-07-02 08:53] LABS: Absolute Lymphocytes (CBC) 0.5 K/uL (0.7-4.9); Hematocrit 33.8 % (36.0-45.0); MPV 7.8 fL (7.6-11.3); RBC Red Blood Cell Count 3.64 M/uL (3.86-4.86)
[2022-07-02 09:17] LABS: Potassium 4.2 mEq/L (3.5-5.1)
[2022-07-02] MEDS ORDERED: BISACODYL E.C. 5 MG TAB PO PRN (12:46)
--- NOTE | 2022-07-02 12:52 | P.HP ---
Certification for Inpatient Patient admitted to: Inpatient With expected LOS: >2 Midnights Practitioner: I am a practitioner with admitting privileges, knowledge of patient current condition, hospital course, and medical plan of care. Services: Services provided to patient in accordance with Admission requirements found in Title 42 Section 412.3 of the Code of Federal Regulations Patient History Date of Service: 07/02/22 Primary Care Provider: alexis Reason for admission: uti History of Present Illness: Patient was recently admitted with pelvic fracture. She had a uti at that time. Was sent to [facility] for the PT. Had confusion, nausea and vomiting for the a day and was sent back. found to have a continued uti and was admitted. She is not able to give a history at this time Allergies valsartan Allergy (Intermediate, Verified 10/16/21 12:43) Unknown losartan [Losartan] Allergy (Verified 09/24/14 15:56) Hives/Rash Home Medications: Escitalopram [Lexapro*] 10 mg PO DAILY tab 06/30/22 Memantine HCl [Namenda*] 10 mg PO DAILY 06/30/22 bisacodyL [Dulcolax*] 10 mg PO DAILY PRN tab 06/30/22 - Past Medical/Surgical History Has patient received pneumonia vaccine in the past: Yes Diabetic: Yes -: Diabetes -: Hyperlipidemia -: Sleep apnea -: Vertigo -: CHF? 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 - Family History Mother -: Heart disease Sister -: Diabetes - Social History Smoking Status: Unknown if ever smoked Alcohol use: No CD- Drugs: No Caffeine use: No Review of Systems 10-point ROS is otherwise unremarkable Gastrointestinal: Nausea, Vomiting Neurological: Confusion Physical Examination - Vital Signs Temperature: 97.8 F Blood Pressure: 134/79 Pulse: 92 Respirations: 18 Pulse Ox (%): 98 - Physical Exam General: Alert, In no apparent distress HEENT: Atraumatic, PERRLA, Mucous membr. moist/pink, EOMI, Sclerae nonicteric Neck: Supple, 2+ carotid pulse no bruit, No LAD, Without JVD or thyroid abnormality Respiratory: Clear to auscultation bilaterally, Normal air movement Cardiovascular: Regular rate/rhythm, Normal S1 S2 Gastrointestinal: Normal bowel sounds, No tenderness Musculoskeletal: No tenderness Integumentary: No rashes Neurological: Normal gait, Normal speech, Normal strength at 5/5 x4 extr, Normal tone, Normal affect Lymphatics: No axilla or inguinal lymphadenopathy - Studies Laboratory Data (last 24 hrs) 07/01/22 14:52: PT 12.6 H, INR 1.15 07/01/22 14:52: WBC 12.60 H, Hgb 12.0, Hct 35.9 L, Plt Count 466 H 07/01/22 14:35: Sodium 134 L, Potassium 4.5, BUN 26 H, Creatinine 1.05 H, Glucose 186 H, Magnesium 2.4, Total Bilirubin 1.4 H, AST 47 H, ALT 26, Alkaline Phosphatase 217 H, Lipase 60 Assessment and Plan - Problems (Diagnosis) (1) UTI (urinary tract infection) Current Visit: Yes Status: Acute Plan: Will continue ceftriaxone and fluids. Qualifiers: Urinary tract infection type: acute cystitis (2) Unspecified dementia, unspecified severity, without behavioral disturbance, psychotic disturbance, mood disturbance, and anxiety Current Visit: Yes Status: Acute Plan: continue namenda Qualifiers: Dementia severity: unspecified severity (3) Pelvic fracture Current Visit: No Status: Acute Plan: will continue PT Qualifiers: Encounter type: subsequent encounter Pelvic bone location: unspecified part of pelvis Fracture healing: with routine healing Discharge Plan: Shelter Plan to discharge in: 48 Hours - Advance Directives Does patient have a Living Will: No Does patient have a Durable POA for Healthcare: No - Code Status/Comfort Care Code Status Assessed: No Physician Review: Patient Assessed, Agree with Above Assessment and Plan Critical Care: No Time Spent Managing Pts Care (In Minutes): 45
[2022-07-02] MEDS: ACETAMINOPHEN 325 MG TABLET PO PRN (20:01)
[2022-07-03] MEDS: NA CHLORIDE 0.9% 1,000 ML IV SCH (02:39)
[2022-07-03] MEDS: ACETAMINOPHEN 325 MG TABLET PO PRN ×2 (02:42→13:42)
[2022-07-03] MEDS: carvediloL 3.125 MG TAB PO SCH (06:18)
[2022-07-03] MEDS ORDERED: ESCITALOPRAM 20 MG TAB PO SCH (09:00)
[2022-07-03] MEDS ORDERED: MEMANTINE HCL 10 MG TABLET PO SCH (09:00)
[2022-07-03 09:15] VITALS: O2SAT 100
[2022-07-03] MEDS: CEFTRIAXONE 1,000 MG in NA CHLORIDE 0.9% 50 ML IVPB SCH (09:49)
[2022-07-03] MEDS: FAMOTIDINE 20 MG/2 ML VIAL IV SCH (09:49)
[2022-07-03] MEDS: ASPIRIN EC 81 MG TAB PO SCH (09:49)
[2022-07-03 12:27] VITALS: BP 131/73; TEMP 97.8
--- NOTE | 2022-07-03 13:05 | P.DS ---
Admission Date: 07/01/22 Discharge Date: 07/03/22 Primary Care Provider: alexis Disposition: TRANSFER TO [facility] Discharge Condition: GOOD Reason for Admission: uti - Problems (1) UTI (urinary tract infection) Current Visit: Yes Status: Acute Qualifiers: Urinary tract infection type: acute cystitis (2) Unspecified dementia, unspecified severity, without behavioral disturbance, psychotic disturbance, mood disturbance, and anxiety Current Visit: Yes Status: Acute Qualifiers: Dementia severity: unspecified severity (3) Pelvic fracture Current Visit: No Status: Acute Qualifiers: Encounter type: subsequent encounter Pelvic bone location: unspecified part of pelvis Fracture healing: with routine healing Brief History of Present Illness: Patient was recently admitted with pelvic fracture. She had a uti at that time. Was sent to [place] for the PT. Had confusion, nausea and vomiting for the a day and was sent back. found to have a continued uti and was admitted. She is not able to give a history at this time Hospital Course: Patient was admitted for delirium. her UTI was back. She responded well to iv fluids and antibiotics. Will transfer her back to the group home on levaquin for 7 days Vital Signs/Physical Exam: Temp Pulse Resp BP Pulse Ox 97.8 F 102 H 16 131/73 95 07/03/22 12:00 07/03/22 12:00 07/03/22 12:00 07/03/22 12:00 07/03/22 12:00 General: Alert, In no apparent distress HEENT: Atraumatic, PERRLA, EOMI Neck: Supple, JVD not distended Respiratory: Clear to auscultation bilaterally, Normal air movement Cardiovascular: Regular rate/rhythm, Normal S1 S2 Gastrointestinal: Normal bowel sounds, No tenderness Musculoskeletal: No tenderness Integumentary: No rashes Neurological: Normal speech, Normal tone, Normal affect Lymphatics: No axilla or inguinal lymphadenopathy Laboratory Data at Discharge: WBC 16.30 thou/uL (4.3-10.9) H 07/02/22 08:23 Hgb 11.2 g/dL (12.0-15.0) L 07/02/22 08:23 Hct 33.8 % (36.0-45.0) L 07/02/22 08:23 Plt Count 380 thou/uL (152-406) 07/02/22 08:23 PT 12.6 SECONDS (9.5-12.5) H 07/01/22 14:52 INR 1.15 07/01/22 14:52 Sodium 134 mEq/L (136-145) L 07/02/22 08:23 Potassium 4.2 mEq/L (3.5-5.1) 07/02/22 08:23 BUN 21 mg/dL (7-18) H 07/02/22 08:23 Creatinine 0.76 mg/dL (0.55-1.02) 07/02/22 08:23 Glucose 134 mg/dL (74-106) H 07/02/22 08:23 Magnesium 2.4 mg/dL (1.6-2.4) 07/01/22 14:35 Total Bilirubin 1.4 mg/dL (0.2-1.0) H 07/01/22 14:35 AST 47 U/L (15-37) H 07/01/22 14:35 ALT 26 U/L (13-56) 07/01/22 14:35 Alkaline Phosphatase 217 U/L (45-117) H 07/01/22 14:35 Lipase 60 U/L (13-75) 07/01/22 14:35 Home Medications: Escitalopram [Lexapro*] 10 mg PO DAILY tab 06/30/22 Memantine HCl [Namenda*] 10 mg PO DAILY 06/30/22 bisacodyL [Dulcolax*] 10 mg PO DAILY PRN tab 06/30/22 Levofloxacin [Levaquin] 500 mg PO DAILY 7 Days #7 tab 07/03/22 New Medications: Levofloxacin [Levaquin] 500 mg PO DAILY 7 Days #7 tab Diet: Regular Activity: Fall precautions Followup: Shahid Canas MD [Primary Care Provider] - Physician Review: Patient Assessed, Agree with Above Assessment and Plan Time spent managing pt's care (in minutes): 30
== END 2022-07-03 15:15 | DRG 690 ==
LOC: ER 13:31 → ERHOLD 17:02 → 2ND 07-02 16:26
PROVIDERS: ADMIT Internal Medicine; ATTEND Internal Medicine
DX: N30.00 Acute cystitis without hematuria (principal); F03.90 Unspecified dementia, unspecified severity, without behavioral disturbance, psychotic disturbance, mood disturbance, and anxiety; R41.0 Disorientation, unspecified; S32.9XXD Fracture of unspecified parts of lumbosacral spine and pelvis, subsequent encounter for fracture with routine healing; E11.9 Type 2 diabetes mellitus without complications; E78.5 Hyperlipidemia, unspecified; G47.30 Sleep apnea, unspecified; J44.9 Chronic obstructive pulmonary disease, unspecified; I51.7 Cardiomegaly; I10 Essential (primary) hypertension; N19 Unspecified kidney failure; R29.6 Repeated falls; Z99.81 Dependence on supplemental oxygen; Z95.2 Presence of prosthetic heart valve; Z90.710 Acquired absence of both cervix and uterus; Z88.8 Allergy status to other drugs, medicaments and biological substances; Z82.49 Family history of ischemic heart disease and other diseases of the circulatory system; Z83.3 Family history of diabetes mellitus
CPT/HCPCS: 36415; 51702; 70450; 71045; 71250; 72125; 80048; 80076; 81001; 83605; 83690; 83735; 83880; 84484; 85025; 85610; 87040; 93005; 96365; 96375; 99285; J0696; J2405; J7030; J7040